=== PATIENT | female | born 1990 | race Caucasian/White ===

== ENCOUNTER 2019-01-11 15:18 | Inpatient (IN) | payer MEDICAID ==
--- NOTE | 2019-01-11 20:28 | PCM.LDHP ---
<Marcelo Luna - Last Filed: 01/11/19 21:32> L&D History of Present Illness - General Date of Service: 01/11/19 Admit Problem/Dx: Patient Status Order with Admit Dx/Problem 01/11/19 15:57 Patient Status [ADT] Routine Admission Diagnosis/Problem Admission Diagnosis/Problem Hypertension affecting Source of Information: Patient History Limitations: Reports: No Limitations - History of Present Illness Introduction:: Patient is a 28yo female at 37-4/7 weeks here for induction of labor. Pt was at work today when she experienced an episode of blurry vision lasting approximately 30 minutes. She also reported a headache at this time. Headache and vision have since returned to normal. Pt denies any vaginal discharge. Pt reports some painful cramping that comes and goes. Pt reports no abdominal pain at this time. Blood pressure was 150s/90s. This was monitored for an additional 4 hours, with the lowest pressure reading in the 130s/80s. An NST was performed which was reactive. Pt reports good movement. A CBC, CMP, and UA were obtained. The UA showed a urine creatinine/protein ratio of 8549.9 mg/g. It was decided to proceed with induction of labor. Pt understands and is in agreement. Present Illness Comments:: Pt is a 28yo female at 37 - 4/7 weeks gestation dated by 7 week ultrasound ([facility] 01/28/19). Dania Gaytan is a 28-year-old at 37 weeks 4 days by 7 week ultrasound ( [facility]HEL[facility] 01/28/2019) who presents for induction of labor 2/2 preeclampsia. She has had an overall uncomplicated and has had routine care with myself starting at 7 weeks gestational age. She had the TDaP vaccine on 2018. She did no receive the influenza vaccine. Her is complicated by: * IUGR; seen by Dr. Castrejon whose note showed EFW at 28th percentile and recommended for delivery at 39-40 WGA * GBS+ * Preeclampsia * Obesity labs Blood type: O+ Antibody screen: Negative First trimester hematocrit/hemoglobin: 38.3%/13.0 on 06/01/2018 Platelets: 290 on 06/01/2018 Urine culture: Mixed roma suggestive of contamination Rubella status: Immune Hepatitis B surface antigen: Negative RPR: Negative HIV: Negative Gonorrhea: Negative Chlamydia: Negative Anatomy ultrasound: 10/14/2018 at 24-0/7 showed normal growth, mobile baby. Anatomy normal except extremities not well visualized. Repeat US done on to recheck anatomy not seen. Lower legs, ankles and feet not seen but "felt to be present". One hour glucose tolerance test: 105 Second trimester hematocrit/hemoglobin: 32.2%/10.6 on 11/15/2018 Platelets: 289 on 11/15/2018 GBS status: Positive Genetic testing: Declined - Related Data Allergies/Adverse Reactions: Allergies Allergy/AdvReac Type Severity Reaction Status Date / Time seasonal Allergy Sneezing Uncoded 11/21/18 03:17 Home Medications: Home Meds PNV95/Ferrous Fumarate/FA [ Tablet] 1 each PO DAILY 11/21/18 [History] Past Medical History HEENT History: Reports: Allergic Rhinitis Social & Family History - Family History Respiratory: Reports: COPD (Paternal grandmother) GI: Reports: Hepatitis (Mother - Hep C) Endocrine/Metabolic: Reports: Diabetes, Type I (Brother), Hypothyroidism (Mother ) Dermatologic: Reports: Other (See Below) (skin cancer- maternal grandmother) - Tobacco Use Smoking Status *Q: Never Smoker - Alcohol Use Alcohol Use History: No - Recreational Drug Use Recreational Drug Use: No - Sexual History Sexual History: Reports: Sexually Active - Living Situation & Occupation Living situation: Reports: with Significant Other Occupation: Employed H&P Review of Systems - Review of Systems: Review Of Systems: See Below General: Reports: No Symptoms HEENT: Reports: No Symptoms Pulmonary: Reports: No Symptoms Cardiovascular: Reports: No Symptoms Gastrointestinal: Reports: No Symptoms Genitourinary: Reports: No Symptoms Musculoskeletal: Reports: Back Pain Skin: Reports: No Symptoms Psychiatric: Reports: No Symptoms Neurological: Reports: No Symptoms Hematologic/Lymphatic: Reports: No Symptoms Immunologic: Reports: No Symptoms L&D Exam - Exam Exam: See Below - Vital Signs Weight: 102.512 kg - OB Specific Fundal Height In cm: 37 Movement: Active Heart Tones: Present Heart Tones per Min: 125 Heart Rate (FHR) Variability: Moderate (6-25 bmp) Presentation: Vertex - Exam General: Alert, Oriented, Cooperative HEENT: Conjunctiva Clear, EACs Clear, EOMI, Hearing Intact, Mucosa Moist & [place] , Nares Patent, Normal Nasal Septum, Pupils Equal, Pupils Reactive Neck: Supple, Trachea Midline. No: Lymphadenopathy Lungs: Clear to Auscultation, Normal Respiratory Effort. No: Crackles, Rales, Rhonchi, Rub, Stridor, Wheezing Cardiovascular: Regular Rate, Regular Rhythm, Normal S1, Normal S2. No: Systolic Murmur, Diastolic Murmur, Rubs, Gallop/S3, Gallop/S4 GI/Abdominal Exam: Normal Bowel Sounds, Soft, Non-Tender, Tender, Other (Gravid) Rectal Exam: Deferred Genitourinary: Normal external exam Back Exam: Normal Inspection, Full Range of Motion Extremities: Normal Inspection, Normal Range of Motion, Non-Tender, Pedal Edema Skin: Warm, Dry, Intact Neurological: Cranial Nerves Intact, Normal Gait, Normal Speech, Sensation Intact Psychiatric: Alert, Normal Affect, Normal Mood Problem List Initiated/Reviewed/Updated: Yes Orders Last 24hrs: Active Orders 24 hr Category Date Time Status Patient Status [ADT] Routine ADT 01/11/19 15:57 Active Monitoring [RC] CONTINUOUS Care 01/11/19 15:58 Active Non Stress Test [RC] PER UNIT ROUTINE Care 01/11/19 15:57 Active Up ad Jenniffer [RC] ASDIRECTED Care 01/11/19 15:58 Active Vital Signs [RC] PER UNIT ROUTINE Care 01/11/19 15:57 Active Regular Diet [DIET] Diet 01/11/19 Dinner Active Resuscitation Status Routine Resus Stat 01/11/19 15:57 Ordered Assessment/Plan Comment:: Refer to observation for elective induction of labor Place cytotec for cervical ripening Start Pitocin for induction of labor Continuous monitoring Place IV and have Lactated Ringer's at 125 ml/hr May have small amounts of regular diet Activity as tolerated May have epidural as desired Plans to breast-feed after delivery Anticipate vaginal delivery unless otherwise indicated <Fer Dey - Last Filed: 01/12/19 00:56> L&D History of Present Illness - General Admit Problem/Dx: Patient Status Order with Admit Dx/Problem 01/11/19 20:30 Patient Status [ADT] Routine Admission Diagnosis/Problem Admission Diagnosis/Problem Pre-eclampsia L&D Exam - Vital Signs Vital Signs: Last Vital Signs Temp 36.6 C 01/11/19 15:57 Pulse 66 01/11/19 15:57 Resp 16 01/11/19 15:57 BP 149/83 H 01/11/19 15:57 Pulse Ox - Patient Data Lab Results Last 24 hrs: Laboratory Results - last 24 hr 01/11/19 Range/Units 14:33 RPR Non-reactive (NONREACTIVE) Orders Last 24hrs: Active Orders 24 hr Category Date Time Status Patient Status [ADT] Routine ADT 01/11/19 20:30 Active Activity as Tolerated [RC] PFP Care 01/11/19 20:30 Active Communication Order [RC] ASDIRECTED Care 01/11/19 20:30 Active Communication Order [RC] ASDIRECTED Care 01/11/19 20:35 Active Communication Order [RC] ASDIRECTED Care 01/11/19 20:35 Active Communication Order [RC] ASDIRECTED Care 01/11/19 20:35 Active Heart Tones [RC] ASDIRECTED Care 01/11/19 20:31 Active Monitoring [RC] CONTINUOUS Care 01/11/19 15:58 Active Non Stress Test [RC] PER UNIT ROUTINE Care 01/11/19 15:57 Active Notify Provider Vital Signs [RC] PRN Care 01/11/19 20:32 Active Notify Provider [RC] ASDIRECTED Care 01/11/19 20:35 Active Notify Provider [RC] ASDIRECTED Care 01/11/19 20:36 Active Notify Provider [RC] PFP Care 01/11/19 20:30 Active Notify Provider [RC] PRN Care 01/11/19 20:30 Active Peripheral IV Care [RC] . DIRECTED Care 01/11/19 20:31 Active Pump Management, Intrathecal [RC] ASDIRECTED Care 01/11/19 20:31 Active Up ad Jenniffer [RC] ASDIRECTED Care 01/11/19 15:58 Active Vaginal Exam [RC] ASDIRECTED Care 01/11/19 20:35 Active Vital Signs [RC] PER UNIT ROUTINE Care 01/11/19 15:57 Active Vital Signs [RC] PER UNIT ROUTINE Care 01/11/19 20:30 Active Regular Diet [DIET] Diet 01/11/19 Dinner Active Acetaminophen [Tylenol] Med 01/11/19 20:30 Active 650 mg PO Q6H PRN Lactated Ringers [Ringers, Lactated] 1,000 ml Med 01/11/19 20:30 Active IV ASDIRECTED Nalbuphine [Nubain] Med 01/11/19 20:30 Active 10 mg IVPUSH Q2H PRN Oxytocin/Lactated Ringers [Pitocin in LR 10 Units/1,000 Med 01/11/19 20:30 Active ML] 10 unit in 1,000 ml IV .CONTINUOUS Sodium Chloride 0.9% [Saline Flush] Med 01/11/19 20:30 Active 10 ml FLUSH ASDIRECTED PRN Sodium Chloride 0.9% [Saline Flush] Med 01/11/19 20:35 Active 10 ml FLUSH ASDIRECTED PRN miSOPROStol [Cytotec] Med 01/11/19 20:35 Active 25 mcg PO Q4H PRN Electronic Heart Tones Ext w TOCO [WOMSER] Ot 01/11/19 20:30 Ordered Routine Electronic Heart Tones Internal [WOMSER] Per Unit Ot 01/11/19 20:30 Ordered Routine Medication Administration Instruction [OM.PC] Ot 01/11/19 20:45 Ordered ASDIRECTED Peripheral IV Insertion Adult [OM.PC] Routine Ot 01/11/19 20:30 Ordered Peripheral IV Insertion Adult [OM.PC] Routine Ot 01/11/19 20:35 Ordered Resuscitation Status Routine Resus Stat 01/11/19 15:57 Ordered Medication Orders Acetaminophen (Tylenol) 650 mg PO Q6H PRN PRN Reason: Pain (Mild 1-3) and fever Lactated Ringer's (Ringers, Lactated) 1,000 mls @ 100 mls/hr IV ASDIRECTED [facility] Oxytocin/Lactated Ringer's (Pitocin In Lr 10 Units/1,000 Ml) 10 unit in 1,000 mls @ 100 mls/hr IV .CONTINUOUS [facility] Misoprostol (Cytotec) 25 mcg PO Q4H PRN PRN Reason: cervical ripening Nalbuphine HCl (Nubain) 10 mg IVPUSH Q2H PRN PRN Reason: Pain Sodium Chloride (Saline Flush) 10 ml FLUSH ASDIRECTED PRN PRN Reason: Keep Vein Open Sodium Chloride (Saline Flush) 10 ml FLUSH ASDIRECTED PRN PRN Reason: Keep Vein Open Assessment/Plan Comment:: I have seen and evaluated the patient with the medical student and agree with the assessment and plan as above with the following changes: Plan is for patient to receive Cytotec for cervical ripening and initial induction of labor. We will plan to transition to Pitocin for induction of labor after Cytotec has been given for initial induction. Fer Dey M.D. 12:56 AM 01/12/2019
[2019-01-11] MEDS ORDERED: Oxytocin/Lactated Ringers 10 UNIT/1,000 ML BAG IV SCH (20:30)
[2019-01-11] MEDS ORDERED: Nalbuphine 10 MG/1 ML Vial IVPUSH PRN (20:30)
[2019-01-11] MEDS ORDERED: Acetaminophen 325 MG Tab PO PRN (20:30)
[2019-01-11] MEDS ORDERED: Lactated Ringers 1,000 ML IV SCH (20:30)
[2019-01-11] MEDS ORDERED: Sodium Chloride 0.9% 10 ML Syringe FLUSH PRN ×2 (20:30→20:35)
[2019-01-11] MEDS ORDERED: Misoprostol 100 MCG Tab PO PRN (20:35)
--- NOTE | 2019-01-11 22:10 | PCM.SN ---
- Free Text/Narrative Note: 01-11-19 [id number] IV started tiimes 1 attempt left hand 20 guage. Flushed and secured. Norman
[2019-01-11] MEDS: Misoprostol 25 MCG (1/4 of 100 MCG) Tab ONE (22:45)
[2019-01-12] MEDS ORDERED: Bupivacaine 0.25% 10 ML SDV ONE
--- NOTE | 2019-01-12 01:13 | PCM.PNLD ---
Labor Progress Note - VS & Meds Vital Signs: Last Vital Signs Temp 36.6 C 01/11/19 15:57 Pulse 66 01/11/19 15:57 Resp 16 01/11/19 15:57 BP 149/83 H 01/11/19 15:57 Pulse Ox Active Medications: Current Medications Acetaminophen (Tylenol) 650 mg PO Q6H PRN PRN Reason: Pain (Mild 1-3) and fever Lactated Ringer's (Ringers, Lactated) 1,000 mls @ 100 mls/hr IV ASDIRECTED [facility] Oxytocin/Lactated Ringer's (Pitocin In Lr 10 Units/1,000 Ml) 10 unit in 1,000 mls @ 100 mls/hr IV .CONTINUOUS [facility] Misoprostol (Cytotec) 25 mcg PO Q4H PRN PRN Reason: cervical ripening Nalbuphine HCl (Nubain) 10 mg IVPUSH Q2H PRN PRN Reason: Pain Sodium Chloride (Saline Flush) 10 ml FLUSH ASDIRECTED PRN PRN Reason: Keep Vein Open Sodium Chloride (Saline Flush) 10 ml FLUSH ASDIRECTED PRN PRN Reason: Keep Vein Open Discontinued Medications Misoprostol (Cytotec) Confirm Administered Dose 25 mcg .ROUTE .STK-MED ONE Stop: 01/11/19 20:42 - Uterine Contractions Uterine Monitoring Mode: External [place] Contraction Frequency (min): 2-3 Contraction Duration (sec): 30-60 Contraction Intensity: Moderate Uterine Resting Tone: Soft - Monitoring Monitor Mode: Doppler/Auscultation Heart Rate (FHR) Baseline: 130 Heart Rate (FHR) Per Doppler: 130 Heart Rate (FHR) Variability: Moderate (6-25 bmp) Accelerations: Present, 15x15 Decelerations: None Strip Review: Category I - Vaginal Exam Dilation (cm): 2 Effacement (Percent): 80 Station: -3 Cervical Position: Midposition Sterile Vaginal Exam Performed By: Fer Dey Vaginal Exam Comment: Sterile exam performed and a transcervical 16 [place] Espinoza bulb was placed without difficulty. The catheter balloon was filled with 50 mL of sterile saline. Mother and tolerated procedure without difficulty. - Labor Progress (Free Text) Labor Progress: Patient with good progression with first dose of Cytotec Continue with induction with next dose of Cytotec as indicated 16 [place] transcervical Espinoza bulb was placed without difficulty and the balloon was filled with 50 mL of sterile saline. Espinoza catheter should be placed on stretch once patient is more comfortable to allow for better mechanical dilation of the cervix Continue to monitor blood pressures and vital signs closely for signs of preeclampsia with severe features. Patient with mild range blood pressures throughout the induction up to this point. Continue to monitor further signs of severe features of preeclampsia Continuous monitoring We will plan to transition to Pitocin for continued induction of labor once the cervix is favorable for Pitocin Anticipate vaginal delivery unless otherwise indicated Fer Dey M.D. 1:14 AM 01/12/2019
[2019-01-12] MEDS ORDERED: Misoprostol 25 MCG (1/4 of 100 MCG) Tab ONE (03:10)
[2019-01-12] MEDS: Misoprostol 25 MCG (1/4 of 100 MCG) Tab ONE (03:14)
[2019-01-12] MEDS ORDERED: Misoprostol 25 MCG (1/4 of 100 MCG) Tab PO PRN ×2 (03:57→04:01)
[2019-01-12] MEDS ORDERED: Ampicillin 2 GM in Sodium Chloride 0.9% 100 ML IV ONE (04:00)
--- NOTE | 2019-01-12 08:28 | PCM.PNLD ---
<Marcelo Luna - Last Filed: 01/12/19 08:22> Labor Progress Note - VS & Meds Vital Signs: Last Vital Signs Temp 97.9 F 01/11/19 15:57 Pulse 66 01/11/19 15:57 Resp 16 01/11/19 15:57 BP 149/83 H 01/11/19 15:57 Pulse Ox Active Medications: Current Medications Acetaminophen (Tylenol) 650 mg PO Q6H PRN PRN Reason: Pain (Mild 1-3) and fever Lactated Ringer's (Ringers, Lactated) 1,000 mls @ 100 mls/hr IV ASDIRECTED [facility] Last Admin: 01/12/19 04:16 Dose: 100 mls/hr Oxytocin/Lactated Ringer's (Pitocin In Lr 10 Units/1,000 Ml) 10 unit in 1,000 mls @ 100 mls/hr IV .CONTINUOUS [facility] Ampicillin Sodium 1 gm/ Sodium (Chloride) 100 mls @ 200 mls/hr IV Q4H [facility] Misoprostol (Cytotec) 25 mcg PO Q4H PRN PRN Reason: cervical ripening Nalbuphine HCl (Nubain) 10 mg IVPUSH Q2H PRN PRN Reason: Pain Sodium Chloride (Saline Flush) 10 ml FLUSH ASDIRECTED PRN PRN Reason: Keep Vein Open Sodium Chloride (Saline Flush) 10 ml FLUSH ASDIRECTED PRN PRN Reason: Keep Vein Open Discontinued Medications Ampicillin Sodium 2 gm/ Sodium (Chloride) 100 mls @ 200 mls/hr IV ONETIME ONE Stop: 01/12/19 04:29 Last Admin: 01/12/19 04:16 Dose: 200 mls/hr Misoprostol (Cytotec) 25 mcg PO Q4H PRN PRN Reason: cervical ripening Misoprostol (Cytotec) Confirm Administered Dose 25 mcg .ROUTE .STK-MED ONE Stop: 01/11/19 20:42 Last Admin: 01/12/19 03:14 Dose: 25 mcg Misoprostol (Cytotec) Confirm Administered Dose 25 mcg .ROUTE .STK-MED ONE Stop: 01/12/19 03:11 Misoprostol (Cytotec) 25 mcg PO Q4H PRN PRN Reason: cervical ripening - Uterine Contractions Uterine Monitoring Mode: External [place] Contraction Frequency (min): 2-4 Contraction Duration (sec): 30-60 Contraction Intensity: Moderate Uterine Resting Tone: Soft - Monitoring Monitor Mode: Doppler/Auscultation Heart Rate (FHR) Baseline: 130 Heart Rate (FHR) Per Doppler: 130 Heart Rate (FHR) Variability: Moderate (6-25 bmp) Accelerations: Present, 15x15 Decelerations: None Strip Review: Category I - Vaginal Exam Dilation (cm): 5 Effacement (Percent): 80 Station: -2 Cervical Position: Anterior Sterile Vaginal Exam Performed By: Fer Dey - Labor Progress (Free Text) Labor Progress: Patient with good progression with first 2 doses of Cytotec 16 [place]h transcervical Espinoza bulb was removed without difficulty Continue to monitor blood pressures and vital signs closely for signs of preeclampsia with severe features. Patient did have a few blood pressures approaching the severe features threshold Continue to monitor further signs of severe features of preeclampsia Continuous monitoring Ampicillin q4h until delivery Transition to Pitocin for continued induction of labor Anticipate vaginal delivery unless otherwise indicated <Fer Dey - Last Filed: 01/12/19 09:32> Labor Progress Note - VS & Meds Vital Signs: Last Vital Signs Temp 36.6 C 01/11/19 15:57 Pulse 66 01/11/19 15:57 Resp 16 01/11/19 15:57 BP 149/83 H 01/11/19 15:57 Pulse Ox Active Medications: Current Medications Acetaminophen (Tylenol) 650 mg PO Q6H PRN PRN Reason: Pain (Mild 1-3) and fever Ephedrine Sulfate (Ephedrine Sulfate) 5 mg IVPUSH ASDIRECTED PRN PRN Reason: Hypotension Fentanyl (Sublimaze) 100 mcg EPIDUR Q3H PRN PRN Reason: Pain Fentanyl/Bupivacaine HCl (Fentanyl/Bupivacaine/Ns 2 Mcg-0.125% 250 Ml) 2 mcg EPIDUR CONTINUOUS PRN PRN Reason: Pain Lactated Ringer's (Ringers, Lactated) 1,000 mls @ 100 mls/hr IV ASDIRECTED [facility] Last Admin: 01/12/19 04:16 Dose: 100 mls/hr Oxytocin/Lactated Ringer's (Pitocin In Lr 10 Units/1,000 Ml) 10 unit in 1,000 mls @ 100 mls/hr IV .CONTINUOUS [facility] Last Admin: 01/12/19 08:30 Dose: 100 mls/hr Ampicillin Sodium 1 gm/ Sodium (Chloride) 100 mls @ 200 mls/hr IV Q4H [facility] Last Admin: 01/12/19 08:29 Dose: 200 mls/hr Misoprostol (Cytotec) 25 mcg PO Q4H PRN PRN Reason: cervical ripening Nalbuphine HCl (Nubain) 10 mg IVPUSH Q2H PRN PRN Reason: Pain Ondansetron HCl (Zofran) 4 mg IVPUSH ONETIME PRN PRN Reason: Nausea/Vomiting Sodium Chloride (Saline Flush) 10 ml FLUSH ASDIRECTED PRN PRN Reason: Keep Vein Open Sodium Chloride (Saline Flush) 10 ml FLUSH ASDIRECTED PRN PRN Reason: Keep Vein Open Discontinued Medications Ampicillin Sodium 2 gm/ Sodium (Chloride) 100 mls @ 200 mls/hr IV ONETIME ONE Stop: 01/12/19 04:29 Last Admin: 01/12/19 04:16 Dose: 200 mls/hr Misoprostol (Cytotec) 25 mcg PO Q4H PRN PRN Reason: cervical ripening Misoprostol (Cytotec) Confirm Administered Dose 25 mcg .ROUTE .STK-MED ONE Stop: 01/11/19 20:42 Last Admin: 01/12/19 03:14 Dose: 25 mcg Misoprostol (Cytotec) Confirm Administered Dose 25 mcg .ROUTE .STK-MED ONE Stop: 01/12/19 03:11 Misoprostol (Cytotec) 25 mcg PO Q4H PRN PRN Reason: cervical ripening - Labor Progress (Free Text) Labor Progress: I have seen and evaluated the patient with the medical student and agree with the assessment and plan as per the note above. Fer Dey M.D. 9:32 AM 01/12/2019
[2019-01-12] MEDS: Ampicillin 1 GM in Sodium Chloride 0.9% 100 ML IV SCH ×2 (08:29→12:10)
[2019-01-12] MEDS ORDERED: fentaNYL 100 MCG/2 ML SDV EPIDUR PRN (09:21)
[2019-01-12] MEDS ORDERED: Ondansetron 4 MG/2 ML SDV IVPUSH PRN (09:21)
[2019-01-12] MEDS ORDERED: ePHEDrine 50 MG/ML SDV IVPUSH PRN (09:21)
[2019-01-12] MEDS ORDERED: fentaNYL/Bupivacaine in NS PF 2 MCG-0.125% 250 ML Premix EPIDUR PRN (09:21)
--- NOTE | 2019-01-12 09:27 | PCM.PREANE ---
Preanesthetic Assessment - Anesthesia/Transfusion/Family Hx Anesthesia History: No Prior Anesthesia Family History of Anesthesia Reaction: No Transfusion History: No Prior Transfusion(s) Intubation History: Unknown - Review of Systems General: No Symptoms Pulmonary: No Symptoms Cardiovascular: No Symptoms Gastrointestinal: No Symptoms (GERD) Neurological: No Symptoms, Numbness (Bilateral CTS with ) Other: Reports: None - Physical Assessment NPO Status Date: 01/12/19 NPO Status Time: 10:00 Vital Signs: Last Vital Signs Temp 36.6 C 01/11/19 15:57 Pulse 66 01/11/19 15:57 Resp 16 01/11/19 15:57 BP 149/83 H 01/11/19 15:57 Pulse Ox Height: 1.68 m Weight: 102.512 kg ASA Class: 2 Mental Status: Alert & Oriented x3 Airway Class: Mallampati = 2 Dentition: Reports: Normal Dentition, Caries Thyro-Mental Finger Breadths: 3 Mouth Opening Finger Breadths: 3 ROM/Head Extension: Full Lungs: Clear to Auscultation, Normal Respiratory Effort Cardiovascular: Regular Rate, Regular Rhythm, No Murmurs - Lab Values: Laboratory Last Values WBC 14.20 K/mm3 (3.98-10.04) H 01/12/19 09:00 RBC 3.80 M/mm3 (3.98-5.22) L 01/12/19 09:00 Hgb 10.9 gm/dl (11.2-15.7) L 01/12/19 09:00 Hct 33.5 % (34.1-44.9) L 01/12/19 09:00 MCV 88.2 fl (79.4-94.8) 01/12/19 09:00 MCH 28.7 pg (25.6-32.2) 01/12/19 09:00 MCHC 32.5 g/dl (32.2-35.5) 01/12/19 09:00 RDW Std Deviation 45.5 fL (36.4-46.3) 01/12/19 09:00 Plt Count 236 K/mm3 (182-369) 01/12/19 09:00 MPV 11.1 fl (9.4-12.3) 01/12/19 09:00 Neut % (Auto) 81.9 % (34.0-71.1) H 01/12/19 09:00 Lymph % (Auto) 12.3 % (19.3-51.7) L 01/12/19 09:00 Rock % (Auto) 5.0 % (4.7-12.5) 01/12/19 09:00 Eos % (Auto) 0.4 (0.7-5.8) L 01/12/19 09:00 Baso % (Auto) 0.2 % (0.1-1.2) 01/12/19 09:00 Neut # (Auto) 11.63 K/mm3 (1.56-6.13) H 01/12/19 09:00 Lymph # (Auto) 1.75 K/mm3 (1.18-3.74) 01/12/19 09:00 Rock # (Auto) 0.71 K/mm3 (0.24-0.36) H 01/12/19 09:00 Eos # (Auto) 0.05 K/mm3 (0.04-0.36) 01/12/19 09:00 Baso # (Auto) 0.03 K/mm3 (0.01-0.08) 01/12/19 09:00 RPR Non-reactive (NONREACTIVE) 01/11/19 14:33 Above labs reviewed and noted and within acceptable ranges to proceed with epidural if desired. - Allergies Allergies/Adverse Reactions: Allergies Allergy/AdvReac Type Severity Reaction Status Date / Time seasonal Allergy Sneezing Uncoded 11/21/18 03:17 - Anesthesia Plan Pre-Op Medication Ordered: None - Acknowledgements Anesthesia Type Planned: Epidural Pt an Appropriate Candidate for the Planned Anesthesia: Yes Alternatives and Risks of Anesthesia Discussed w Pt/Guardian: Yes Pt/Guardian Understands and Agrees with Anesthesia Plan: Yes PreAnesthesia Questionnaire HEENT History: Reports: Allergic Rhinitis - SUBSTANCE USE Smoking Status *Q: Never Smoker Second Hand Smoke Exposure: No Recreational Drug Use History: No - HOME MEDS Home Medications: Home Meds PNV95/Ferrous Fumarate/FA [ Tablet] 1 each PO DAILY 11/21/18 [History] - CURRENT (IN HOUSE) MEDS Current Meds: Current Medications Acetaminophen (Tylenol) 650 mg PO Q6H PRN PRN Reason: Pain (Mild 1-3) and fever Ephedrine Sulfate (Ephedrine Sulfate) 5 mg IVPUSH ASDIRECTED PRN PRN Reason: Hypotension Fentanyl (Sublimaze) 100 mcg EPIDUR Q3H PRN PRN Reason: Pain Fentanyl/Bupivacaine HCl (Fentanyl/Bupivacaine/Ns 2 Mcg-0.125% 250 Ml) 2 mcg EPIDUR CONTINUOUS PRN PRN Reason: Pain Lactated Ringer's (Ringers, Lactated) 1,000 mls @ 100 mls/hr IV ASDIRECTED [facility] Last Admin: 01/12/19 04:16 Dose: 100 mls/hr Oxytocin/Lactated Ringer's (Pitocin In Lr 10 Units/1,000 Ml) 10 unit in 1,000 mls @ 100 mls/hr IV .CONTINUOUS [facility] Last Admin: 01/12/19 08:30 Dose: 100 mls/hr Ampicillin Sodium 1 gm/ Sodium (Chloride) 100 mls @ 200 mls/hr IV Q4H [facility] Last Admin: 01/12/19 08:29 Dose: 200 mls/hr Misoprostol (Cytotec) 25 mcg PO Q4H PRN PRN Reason: cervical ripening Nalbuphine HCl (Nubain) 10 mg IVPUSH Q2H PRN PRN Reason: Pain Ondansetron HCl (Zofran) 4 mg IVPUSH ONETIME PRN PRN Reason: Nausea/Vomiting Sodium Chloride (Saline Flush) 10 ml FLUSH ASDIRECTED PRN PRN Reason: Keep Vein Open Sodium Chloride (Saline Flush) 10 ml FLUSH ASDIRECTED PRN PRN Reason: Keep Vein Open Discontinued Medications Ampicillin Sodium 2 gm/ Sodium (Chloride) 100 mls @ 200 mls/hr IV ONETIME ONE Stop: 01/12/19 04:29 Last Admin: 01/12/19 04:16 Dose: 200 mls/hr Misoprostol (Cytotec) 25 mcg PO Q4H PRN PRN Reason: cervical ripening Misoprostol (Cytotec) Confirm Administered Dose 25 mcg .ROUTE .STK-MED ONE Stop: 01/11/19 20:42 Last Admin: 01/12/19 03:14 Dose: 25 mcg Misoprostol (Cytotec) Confirm Administered Dose 25 mcg .ROUTE .STK-MED ONE Stop: 01/12/19 03:11 Misoprostol (Cytotec) 25 mcg PO Q4H PRN PRN Reason: cervical ripening
[2019-01-12] MEDS ORDERED: Oxytocin/Lactated Ringers 10 UNIT/1,000 ML BAG IV SCH ×2 (09:45→20:22)
--- NOTE | 2019-01-12 12:02 | PCM.PNLD ---
<Marcelo Luna - Last Filed: 01/12/19 12:04> Labor Progress Note - VS & Meds Vital Signs: Last Vital Signs Temp 97.9 F 01/11/19 15:57 Pulse 66 01/11/19 15:57 Resp 16 01/11/19 15:57 BP 149/83 H 01/11/19 15:57 Pulse Ox Active Medications: Current Medications Acetaminophen (Tylenol) 650 mg PO Q6H PRN PRN Reason: Pain (Mild 1-3) and fever Ephedrine Sulfate (Ephedrine Sulfate) 5 mg IVPUSH ASDIRECTED PRN PRN Reason: Hypotension Fentanyl (Sublimaze) 100 mcg EPIDUR Q3H PRN PRN Reason: Pain Fentanyl/Bupivacaine HCl (Fentanyl/Bupivacaine/Ns 2 Mcg-0.125% 250 Ml) 2 mcg EPIDUR CONTINUOUS PRN PRN Reason: Pain Lactated Ringer's (Ringers, Lactated) 1,000 mls @ 100 mls/hr IV ASDIRECTED ALFREDITO Last Admin: 01/12/19 04:16 Dose: 100 mls/hr Oxytocin/Lactated Ringer's (Pitocin In Lr 10 Units/1,000 Ml) 10 unit in 1,000 mls @ 100 mls/hr IV .CONTINUOUS ALFREDITO Ampicillin Sodium 1 gm/ Sodium (Chloride) 100 mls @ 200 mls/hr IV Q4H ALFREDITO Last Admin: 01/12/19 08:29 Dose: 200 mls/hr Oxytocin/Lactated Ringer's (Pitocin In Lr 10 Units/1,000 Ml) 10 unit in 1,000 mls @ 12 mls/hr IV TITRATE ALFREDITO; Protocol Misoprostol (Cytotec) 25 mcg PO Q4H PRN PRN Reason: cervical ripening Nalbuphine HCl (Nubain) 10 mg IVPUSH Q2H PRN PRN Reason: Pain Ondansetron HCl (Zofran) 4 mg IVPUSH ONETIME PRN PRN Reason: Nausea/Vomiting Sodium Chloride (Saline Flush) 10 ml FLUSH ASDIRECTED PRN PRN Reason: Keep Vein Open Sodium Chloride (Saline Flush) 10 ml FLUSH ASDIRECTED PRN PRN Reason: Keep Vein Open Discontinued Medications Ampicillin Sodium 2 gm/ Sodium (Chloride) 100 mls @ 200 mls/hr IV ONETIME ONE Stop: 01/12/19 04:29 Last Admin: 01/12/19 04:16 Dose: 200 mls/hr Misoprostol (Cytotec) 25 mcg PO Q4H PRN PRN Reason: cervical ripening Misoprostol (Cytotec) Confirm Administered Dose 25 mcg .ROUTE .STK-MED ONE Stop: 01/11/19 20:42 Last Admin: 01/12/19 03:14 Dose: 25 mcg Misoprostol (Cytotec) Confirm Administered Dose 25 mcg .ROUTE .STK-MED ONE Stop: 01/12/19 03:11 Misoprostol (Cytotec) 25 mcg PO Q4H PRN PRN Reason: cervical ripening - Uterine Contractions Uterine Monitoring Mode: External [place] Contraction Frequency (min): 2-4 Contraction Duration (sec): 30-60 Contraction Intensity: Moderate Uterine Resting Tone: Soft - Monitoring Monitor Mode: Doppler/Auscultation Heart Rate (FHR) Baseline: 130 Heart Rate (FHR) Per Doppler: 140 Heart Rate (FHR) Variability: Moderate (6-25 bmp) Accelerations: Present, 15x15 Decelerations: Early, Late (intermittent) Strip Review: Category II - Vaginal Exam Dilation (cm): 6 Effacement (Percent): 80 Station: -2 Cervical Position: Anterior Sterile Vaginal Exam Performed By: Fer Dey Vaginal Exam Comment: AROM performed with amnihook without difficulty. IUPC inserted for monitoring of contraction pattern with decelerations without difficulty. Mother and tolerated procedure without issue. - Labor Progress (Free Text) Labor Progress: Patient with minimal progression, and intermittent late decelerations Continue to monitor blood pressures and vital signs closely for signs of preeclampsia with severe features. Patient did have a few blood pressures approaching the severe features threshold AROM and insertion of IUPC performed Continue to monitor further signs of severe features of preeclampsia Continuous monitoring Ampicillin q4h until delivery Pitocin for continued induction of labor Anticipate vaginal delivery unless otherwise indicated <Fer Dey - Last Filed: 01/12/19 12:12> Labor Progress Note - VS & Meds Vital Signs: Last Vital Signs Temp 36.6 C 01/11/19 15:57 Pulse 66 01/11/19 15:57 Resp 16 01/11/19 15:57 BP 149/83 H 01/11/19 15:57 Pulse Ox Active Medications: Current Medications Acetaminophen (Tylenol) 650 mg PO Q6H PRN PRN Reason: Pain (Mild 1-3) and fever Ephedrine Sulfate (Ephedrine Sulfate) 5 mg IVPUSH ASDIRECTED PRN PRN Reason: Hypotension Fentanyl (Sublimaze) 100 mcg EPIDUR Q3H PRN PRN Reason: Pain Fentanyl/Bupivacaine HCl (Fentanyl/Bupivacaine/Ns 2 Mcg-0.125% 250 Ml) 2 mcg EPIDUR CONTINUOUS PRN PRN Reason: Pain Lactated Ringer's (Ringers, Lactated) 1,000 mls @ 100 mls/hr IV ASDIRECTED ALFREDITO Last Admin: 01/12/19 04:16 Dose: 100 mls/hr Oxytocin/Lactated Ringer's (Pitocin In Lr 10 Units/1,000 Ml) 10 unit in 1,000 mls @ 100 mls/hr IV .CONTINUOUS ALFREDITO Ampicillin Sodium 1 gm/ Sodium (Chloride) 100 mls @ 200 mls/hr IV Q4H ON LICENSE OF [facility] Last Admin: 01/12/19 12:10 Dose: 200 mls/hr Oxytocin/Lactated Ringer's (Pitocin In Lr 10 Units/1,000 Ml) 10 unit in 1,000 mls @ 12 mls/hr IV TITRATE ALFREDITO; Protocol Misoprostol (Cytotec) 25 mcg PO Q4H PRN PRN Reason: cervical ripening Nalbuphine HCl (Nubain) 10 mg IVPUSH Q2H PRN PRN Reason: Pain Ondansetron HCl (Zofran) 4 mg IVPUSH ONETIME PRN PRN Reason: Nausea/Vomiting Sodium Chloride (Saline Flush) 10 ml FLUSH ASDIRECTED PRN PRN Reason: Keep Vein Open Sodium Chloride (Saline Flush) 10 ml FLUSH ASDIRECTED PRN PRN Reason: Keep Vein Open Discontinued Medications Ampicillin Sodium 2 gm/ Sodium (Chloride) 100 mls @ 200 mls/hr IV ONETIME ONE Stop: 01/12/19 04:29 Last Admin: 01/12/19 04:16 Dose: 200 mls/hr Misoprostol (Cytotec) 25 mcg PO Q4H PRN PRN Reason: cervical ripening Misoprostol (Cytotec) Confirm Administered Dose 25 mcg .ROUTE .STK-MED ONE Stop: 01/11/19 20:42 Last Admin: 01/12/19 03:14 Dose: 25 mcg Misoprostol (Cytotec) Confirm Administered Dose 25 mcg .ROUTE .STK-MED ONE Stop: 01/12/19 03:11 Misoprostol (Cytotec) 25 mcg PO Q4H PRN PRN Reason: cervical ripening - Labor Progress (Free Text) Labor Progress: I have seen and evaluated the patient with the medical student and agree with the assessment and plan as per the note above. Fer Dey M.D. 12:11 PM 01/12/2019
--- NOTE | 2019-01-12 12:43 | PCM.PREANE ---
Preanesthetic Assessment - Anesthesia/Transfusion/Family Hx Anesthesia History: No Prior Anesthesia Family History of Anesthesia Reaction: No Transfusion History: No Prior Transfusion(s) Intubation History: Unknown - Physical Assessment NPO Status Date: 01/12/19 Vital Signs: Last Vital Signs Temp 36.6 C 01/11/19 15:57 Pulse 66 01/11/19 15:57 Resp 16 01/11/19 15:57 BP 149/83 H 01/11/19 15:57 Pulse Ox Height: 1.68 m Weight: 102.512 kg - Lab Values: Laboratory Last Values WBC 14.20 K/mm3 (3.98-10.04) H 01/12/19 09:00 RBC 3.80 M/mm3 (3.98-5.22) L 01/12/19 09:00 Hgb 10.9 gm/dl (11.2-15.7) L 01/12/19 09:00 Hct 33.5 % (34.1-44.9) L 01/12/19 09:00 MCV 88.2 fl (79.4-94.8) 01/12/19 09:00 MCH 28.7 pg (25.6-32.2) 01/12/19 09:00 MCHC 32.5 g/dl (32.2-35.5) 01/12/19 09:00 RDW Std Deviation 45.5 fL (36.4-46.3) 01/12/19 09:00 Plt Count 236 K/mm3 (182-369) 01/12/19 09:00 MPV 11.1 fl (9.4-12.3) 01/12/19 09:00 Neut % (Auto) 81.9 % (34.0-71.1) H 01/12/19 09:00 Lymph % (Auto) 12.3 % (19.3-51.7) L 01/12/19 09:00 [place] % (Auto) 5.0 % (4.7-12.5) 01/12/19 09:00 Eos % (Auto) 0.4 (0.7-5.8) L 01/12/19 09:00 Baso % (Auto) 0.2 % (0.1-1.2) 01/12/19 09:00 Neut # (Auto) 11.63 K/mm3 (1.56-6.13) H 01/12/19 09:00 Lymph # (Auto) 1.75 K/mm3 (1.18-3.74) 01/12/19 09:00 [place] # (Auto) 0.71 K/mm3 (0.24-0.36) H 01/12/19 09:00 Eos # (Auto) 0.05 K/mm3 (0.04-0.36) 01/12/19 09:00 Baso # (Auto) 0.03 K/mm3 (0.01-0.08) 01/12/19 09:00 RPR Non-reactive (NONREACTIVE) 01/11/19 14:33 - Allergies Allergies/Adverse Reactions: Allergies Allergy/AdvReac Type Severity Reaction Status Date / Time seasonal Allergy Sneezing Uncoded 11/21/18 03:17 PreAnesthesia Questionnaire HEENT History: Reports: Allergic Rhinitis - SUBSTANCE USE Smoking Status *Q: Never Smoker Second Hand Smoke Exposure: No Recreational Drug Use History: No - HOME MEDS Home Medications: Home Meds PNV95/Ferrous Fumarate/FA [ Tablet] 1 each PO DAILY 11/21/18 [History] - CURRENT (IN HOUSE) MEDS Current Meds: Current Medications Acetaminophen (Tylenol) 650 mg PO Q6H PRN PRN Reason: Pain (Mild 1-3) and fever Ephedrine Sulfate (Ephedrine Sulfate) 5 mg IVPUSH ASDIRECTED PRN PRN Reason: Hypotension Fentanyl (Sublimaze) 100 mcg EPIDUR Q3H PRN PRN Reason: Pain Fentanyl/Bupivacaine HCl (Fentanyl/Bupivacaine/Ns 2 Mcg-0.125% 250 Ml) 2 mcg EPIDUR CONTINUOUS PRN PRN Reason: Pain Lactated Ringer's (Ringers, Lactated) 1,000 mls @ 100 mls/hr IV ASDIRECTED ALFREDITO Last Admin: 01/12/19 04:16 Dose: 100 mls/hr Oxytocin/Lactated Ringer's (Pitocin In Lr 10 Units/1,000 Ml) 10 unit in 1,000 mls @ 100 mls/hr IV .CONTINUOUS ALFREDITO Ampicillin Sodium 1 gm/ Sodium (Chloride) 100 mls @ 200 mls/hr IV Q4H ALFREDITO Last Admin: 01/12/19 12:10 Dose: 200 mls/hr Oxytocin/Lactated Ringer's (Pitocin In Lr 10 Units/1,000 Ml) 10 unit in 1,000 mls @ 12 mls/hr IV TITRATE ALFREDITO; Protocol Misoprostol (Cytotec) 25 mcg PO Q4H PRN PRN Reason: cervical ripening Nalbuphine HCl (Nubain) 10 mg IVPUSH Q2H PRN PRN Reason: Pain Ondansetron HCl (Zofran) 4 mg IVPUSH ONETIME PRN PRN Reason: Nausea/Vomiting Sodium Chloride (Saline Flush) 10 ml FLUSH ASDIRECTED PRN PRN Reason: Keep Vein Open Sodium Chloride (Saline Flush) 10 ml FLUSH ASDIRECTED PRN PRN Reason: Keep Vein Open Discontinued Medications Ampicillin Sodium 2 gm/ Sodium (Chloride) 100 mls @ 200 mls/hr IV ONETIME ONE Stop: 01/12/19 04:29 Last Admin: 01/12/19 04:16 Dose: 200 mls/hr Misoprostol (Cytotec) 25 mcg PO Q4H PRN PRN Reason: cervical ripening Misoprostol (Cytotec) Confirm Administered Dose 25 mcg .ROUTE .STK-MED ONE Stop: 01/11/19 20:42 Last Admin: 01/12/19 03:14 Dose: 25 mcg Misoprostol (Cytotec) Confirm Administered Dose 25 mcg .ROUTE .STK-MED ONE Stop: 01/12/19 03:11 Misoprostol (Cytotec) 25 mcg PO Q4H PRN PRN Reason: cervical ripening
--- NOTE | 2019-01-12 16:52 | PCM.DEL ---
<Marcelo Luna - Last Filed: 01/12/19 16:56> L & D Note - General Info Date of Service: 01/12/19 - Delivery Note Labor: Augmented by ARM, Augmented by Oxytocin Cervical Ripening Method: Misoprostil Delivery Outcome: Livebirth Delivery Method: Spontaneous Vaginal Delivery-Single Delivery Mode: Spontaneous Presentation: Left Occiput Anterior (MAHESH) Nuchal Cord: Present, Reduced (after delivery) Anesthesia Type: Epidural Amniotic Fluid Description: Clear Episiotomy Type: None Laceration: 1st Degree, Perineal, Periurethral Suture type: Vicryl Suture size: 3-0 Placenta: Curettage, Manual Removal Cord: 3 Vessels Estimated Blood Loss: 500 Resuscitation Needed: No : Bulb Syringe, Stimulated, Warmed, [place] Used, Warmer Used Provider: Fer Dey Score 1 min: 8 Score 5 min: 9 Post Delivery Events: Retained Placenta Second Stage Interventions: Reports: Pushing Effectively, Pushing, Stirrups/Leg Supports Delivery Comments (Free Text/Narrative):: Stage I: Dania Gaytan was admitted for medical induction of labor. She was having blurry vision, persistent elevated blood pressures above 140/90, and proteinuria. On admission her cervix was dilated to 1 cm. She was GBS positive. Treated with ampicillin, and received a total of 3 doses. She was administered cytotec for cervical ripening. She was started on Pitocin for augmentation of labor. She had artificial rupture membranes with clear fluid. She was given an epidural for anesthesia. She progressed to complete and pushing. Stage II: On 01/12/2019 she had a normal vaginal delivery of a live female at . Apgars of 8 & 9. Weight of 2540 g (5 lbs 9.6 oz). Length of 19.5 inches. There was a nuchal cord, which was reduced after delivery of the infant. was delivered in MAHESH position. The cord was doubly clamped and cut by father of the . was placed on mother's abdomen. Stage III: Avulsion of the umbilical cord during delivery of the placenta. The placenta was then manually extracted in multiple pieces. The uterine cavity was then curettaged in all quadrants with good cri noted, and no additional tissue removed. The uterus had good tone after removal of all portions of the retained placenta. Three vessel cord. She was given pitocin and fundal massage. She had a first-degree left perineal laceration that was repaired with 3-0 Vicryl. She also had a small 1st-degree ila-urethral laceration that was not bleeding, and was not repaired. Mom and baby were stable to recovery. EBL of 500 mL. - General Info Date of Service: 01/12/19 - Patient Data Vitals - Most Recent: Last Vital Signs Temp 97.9 F 01/11/19 15:57 Pulse 66 01/11/19 15:57 Resp 16 01/11/19 15:57 BP 149/83 H 01/11/19 15:57 Pulse Ox Weight - Most Recent: 102.512 kg I&O - Last 24 Hours: Intake & Output 01/12/19 01/12/19 01/12/19 06:59 14:59 22:59 Intake Total 240 Balance 240 Lab Results Last 24 Hours: Laboratory Results - last 24 hr 01/11/19 01/12/19 Range/Units 14:33 09:00 WBC 14.20 H (3.98-10.04) K/mm3 RBC 3.80 L (3.98-5.22) M/mm3 Hgb 10.9 L (11.2-15.7) gm/dl Hct 33.5 L (34.1-44.9) % MCV 88.2 (79.4-94.8) fl MCH 28.7 (25.6-32.2) pg MCHC 32.5 (32.2-35.5) g/dl RDW Std Deviation 45.5 (36.4-46.3) fL Plt Count 236 (182-369) K/mm3 MPV 11.1 (9.4-12.3) fl Neut % (Auto) 81.9 H (34.0-71.1) % Lymph % (Auto) 12.3 L (19.3-51.7) % [place] % (Auto) 5.0 (4.7-12.5) % Eos % (Auto) 0.4 L (0.7-5.8) Baso % (Auto) 0.2 (0.1-1.2) % Neut # (Auto) 11.63 H (1.56-6.13) K/mm3 Lymph # (Auto) 1.75 (1.18-3.74) K/mm3 [place] # (Auto) 0.71 H (0.24-0.36) K/mm3 Eos # (Auto) 0.05 (0.04-0.36) K/mm3 Baso # (Auto) 0.03 (0.01-0.08) K/mm3 RPR Non-reactive (NONREACTIVE) Med Orders - Current: Current Medications Acetaminophen (Tylenol) 650 mg PO Q6H PRN PRN Reason: Pain (Mild 1-3) and fever Ephedrine Sulfate (Ephedrine Sulfate) 5 mg IVPUSH ASDIRECTED PRN PRN Reason: Hypotension Fentanyl (Sublimaze) 100 mcg EPIDUR Q3H PRN PRN Reason: Pain Last Admin: 01/12/19 12:43 Dose: 100 mcg Fentanyl/Bupivacaine HCl (Fentanyl/Bupivacaine/Ns 2 Mcg-0.125% 250 Ml) 2 mcg EPIDUR CONTINUOUS PRN PRN Reason: Pain Last Admin: 01/12/19 12:43 Dose: 2 mcg Lactated Ringer's (Ringers, Lactated) 1,000 mls @ 100 mls/hr IV ASDIRECTED ALFREDITO Last Admin: 01/12/19 04:16 Dose: 100 mls/hr Oxytocin/Lactated Ringer's (Pitocin In Lr 10 Units/1,000 Ml) 10 unit in 1,000 mls @ 100 mls/hr IV .CONTINUOUS ALFREDITO Ampicillin Sodium 1 gm/ Sodium (Chloride) 100 mls @ 200 mls/hr IV Q4H ALFREDITO Last Admin: 01/12/19 12:10 Dose: 200 mls/hr Oxytocin/Lactated Ringer's (Pitocin In Lr 10 Units/1,000 Ml) 10 unit in 1,000 mls @ 12 mls/hr IV TITRATE ALFREDITO; Protocol Last Titration: 01/12/19 09:15 Dose: 6 munits/min, 36 mls/hr Misoprostol (Cytotec) 25 mcg PO Q4H PRN PRN Reason: cervical ripening Nalbuphine HCl (Nubain) 10 mg IVPUSH Q2H PRN PRN Reason: Pain Ondansetron HCl (Zofran) 4 mg IVPUSH ONETIME PRN PRN Reason: Nausea/Vomiting Sodium Chloride (Saline Flush) 10 ml FLUSH ASDIRECTED PRN PRN Reason: Keep Vein Open Sodium Chloride (Saline Flush) 10 ml FLUSH ASDIRECTED PRN PRN Reason: Keep Vein Open Discontinued Medications Ampicillin Sodium 2 gm/ Sodium (Chloride) 100 mls @ 200 mls/hr IV ONETIME ONE Stop: 01/12/19 04:29 Last Admin: 01/12/19 04:16 Dose: 200 mls/hr Misoprostol (Cytotec) 25 mcg PO Q4H PRN PRN Reason: cervical ripening Misoprostol (Cytotec) Confirm Administered Dose 25 mcg .ROUTE .STK-MED ONE Stop: 01/11/19 20:42 Last Admin: 01/12/19 03:14 Dose: 25 mcg Misoprostol (Cytotec) Confirm Administered Dose 25 mcg .ROUTE .STK-MED ONE Stop: 01/12/19 03:11 Misoprostol (Cytotec) 25 mcg PO Q4H PRN PRN Reason: cervical ripening - Problem List & Annotations (1) 37 weeks gestation of SNOMED Code(s): 14033513 Code(s): Z3A.37 - 37 WEEKS GESTATION OF Status: Acute Current Visit: Yes (2) Preeclampsia SNOMED Code(s): 586341925 Code(s): O14.90 - UNSPECIFIED PRE-ECLAMPSIA, UNSPECIFIED TRIMESTER Status: Acute Current Visit: Yes (3) Gastroesophageal reflux in SNOMED Code(s): 13346142314078342 Code(s): O99.619 - DISEASES OF THE DGSTV SYS COMP , UNSP TRIMESTER; K21.9 - GASTRO-ESOPHAGEAL REFLUX DISEASE WITHOUT ESOPHAGITIS Status: Acute Current Visit: Yes (4) Obesity SNOMED Code(s): 663078357, 970826436 Code(s): E66.9 - OBESITY, UNSPECIFIED Status: Acute Current Visit: Yes (5) GBS (group B Streptococcus carrier), +RV culture, currently SNOMED Code(s): 4901005247383, 706574924, 9791434545122 Code(s): O99.820 - STREPTOCOCCUS B CARRIER STATE COMPLICATING Status: Acute Current Visit: Yes (6) Vaginal delivery SNOMED Code(s): 418291967 Code(s): O80 - ENCOUNTER FOR FULL-TERM UNCOMPLICATED DELIVERY Status: Acute Current Visit: Yes (7) Retained placenta SNOMED Code(s): 934988608 Code(s): O73.0 - RETAINED PLACENTA WITHOUT HEMORRHAGE Status: Acute Current Visit: Yes (8) First degree laceration of perineum during delivery, SNOMED Code(s): 058533137 Code(s): O70.0 - FIRST DEGREE PERINEAL LACERATION DURING DELIVERY Status: Acute Current Visit: Yes - Problem List Review Problem List Initiated/Reviewed/Updated: Yes - Plan Plan:: Admit to inpatient following normal spontaneous vaginal delivery Continue Pitocin per unit protocol following delivery of placenta and lactated Ringer's until tolerating regular diet Regular diet Vitals per unit routine Ibuprofen and Tylenol for pain control Assist with breast-feeding as needed Continue to monitor lochia Monitor temperature for signs of endometritis Anticipate discharge home on day #2 <Fer Dey - Last Filed: 01/12/19 17:30> - Patient Data Vitals - Most Recent: Last Vital Signs Temp 36.6 C 01/11/19 15:57 Pulse 66 01/11/19 15:57 Resp 16 01/11/19 15:57 BP 149/83 H 01/11/19 15:57 Pulse Ox I&O - Last 24 Hours: Intake & Output 01/12/19 01/12/19 01/12/19 06:59 14:59 22:59 Intake Total 240 Balance 240 Lab Results Last 24 Hours: Laboratory Results - last 24 hr 01/11/19 01/12/19 Range/Units 14:33 09:00 WBC 14.20 H (3.98-10.04) K/mm3 RBC 3.80 L (3.98-5.22) M/mm3 Hgb 10.9 L (11.2-15.7) gm/dl Hct 33.5 L (34.1-44.9) % MCV 88.2 (79.4-94.8) fl MCH 28.7 (25.6-32.2) pg MCHC 32.5 (32.2-35.5) g/dl RDW Std Deviation 45.5 (36.4-46.3) fL Plt Count 236 (182-369) K/mm3 MPV 11.1 (9.4-12.3) fl Neut % (Auto) 81.9 H (34.0-71.1) % Lymph % (Auto) 12.3 L (19.3-51.7) % [place] % (Auto) 5.0 (4.7-12.5) % Eos % (Auto) 0.4 L (0.7-5.8) Baso % (Auto) 0.2 (0.1-1.2) % Neut # (Auto) 11.63 H (1.56-6.13) K/mm3 Lymph # (Auto) 1.75 (1.18-3.74) K/mm3 [place] # (Auto) 0.71 H (0.24-0.36) K/mm3 Eos # (Auto) 0.05 (0.04-0.36) K/mm3 Baso # (Auto) 0.03 (0.01-0.08) K/mm3 RPR Non-reactive (NONREACTIVE) Med Orders - Current: Current Medications Acetaminophen (Tylenol) 650 mg PO Q6H PRN PRN Reason: Pain (Mild 1-3) and fever Ephedrine Sulfate (Ephedrine Sulfate) 5 mg IVPUSH ASDIRECTED PRN PRN Reason: Hypotension Fentanyl (Sublimaze) 100 mcg EPIDUR Q3H PRN PRN Reason: Pain Last Admin: 01/12/19 12:43 Dose: 100 mcg Fentanyl/Bupivacaine HCl (Fentanyl/Bupivacaine/Ns 2 Mcg-0.125% 250 Ml) 2 mcg EPIDUR CONTINUOUS PRN PRN Reason: Pain Last Admin: 01/12/19 12:43 Dose: 2 mcg Lactated Ringer's (Ringers, Lactated) 1,000 mls @ 100 mls/hr IV ASDIRECTED ALFREDITO Last Admin: 01/12/19 04:16 Dose: 100 mls/hr Oxytocin/Lactated Ringer's (Pitocin In Lr 10 Units/1,000 Ml) 10 unit in 1,000 mls @ 100 mls/hr IV .CONTINUOUS ALFREDITO Ampicillin Sodium 1 gm/ Sodium (Chloride) 100 mls @ 200 mls/hr IV Q4H ALFREDITO Last Admin: 01/12/19 12:10 Dose: 200 mls/hr Oxytocin/Lactated Ringer's (Pitocin In Lr 10 Units/1,000 Ml) 10 unit in 1,000 mls @ 12 mls/hr IV TITRATE ALFREDITO; Protocol Last Titration: 01/12/19 09:15 Dose: 6 munits/min, 36 mls/hr Misoprostol (Cytotec) 25 mcg PO Q4H PRN PRN Reason: cervical ripening Nalbuphine HCl (Nubain) 10 mg IVPUSH Q2H PRN PRN Reason: Pain Ondansetron HCl (Zofran) 4 mg IVPUSH ONETIME PRN PRN Reason: Nausea/Vomiting Sodium Chloride (Saline Flush) 10 ml FLUSH ASDIRECTED PRN PRN Reason: Keep Vein Open Sodium Chloride (Saline Flush) 10 ml FLUSH ASDIRECTED PRN PRN Reason: Keep Vein Open Discontinued Medications Ampicillin Sodium 2 gm/ Sodium (Chloride) 100 mls @ 200 mls/hr IV ONETIME ONE Stop: 01/12/19 04:29 Last Admin: 01/12/19 04:16 Dose: 200 mls/hr Misoprostol (Cytotec) 25 mcg PO Q4H PRN PRN Reason: cervical ripening Misoprostol (Cytotec) Confirm Administered Dose 25 mcg .ROUTE .STK-MED ONE Stop: 01/11/19 20:42 Last Admin: 01/12/19 03:14 Dose: 25 mcg Misoprostol (Cytotec) Confirm Administered Dose 25 mcg .ROUTE .STK-MED ONE Stop: 01/12/19 03:11 Misoprostol (Cytotec) 25 mcg PO Q4H PRN PRN Reason: cervical ripening - My Orders Last 24 Hours: My Active Orders 01/11/19 20:30 Patient Status [ADT] Routine Activity as Tolerated [RC] PFP Communication Order [RC] ASDIRECTED Notify Provider [RC] PFP Notify Provider [RC] PRN Vital Signs [RC] PER UNIT ROUTINE Acetaminophen [Tylenol] 650 mg PO Q6H PRN Lactated Ringers [Ringers, Lactated] 1,000 ml IV ASDIRECTED Nalbuphine [Nubain] 10 mg IVPUSH Q2H PRN Oxytocin/Lactated Ringers [Pitocin in LR 10 Units/1,000 ML] 10 unit in 1,000 ml IV .CONTINUOUS Sodium Chloride 0.9% [Saline Flush] 10 ml FLUSH ASDIRECTED PRN Electronic Heart Tones Ext w TOCO [WOMSER] Routine Electronic Heart Tones Internal [WOMSER] Per Unit Routine Peripheral IV Insertion Adult [OM.PC] Routine 01/11/19 20:31 Heart Tones [RC] ASDIRECTED Peripheral IV Care [RC] . DIRECTED Pump Management, Intrathecal [RC] ASDIRECTED 01/11/19 20:32 Notify Provider Vital Signs [RC] PRN 01/11/19 20:35 Communication Order [RC] ASDIRECTED Communication Order [RC] ASDIRECTED Communication Order [RC] ASDIRECTED Notify Provider [RC] ASDIRECTED Vaginal Exam [RC] ASDIRECTED Sodium Chloride 0.9% [Saline Flush] 10 ml FLUSH ASDIRECTED PRN Peripheral IV Insertion Adult [OM.PC] Routine 01/11/19 20:36 Notify Provider [RC] ASDIRECTED 01/11/19 20:45 Medication Administration Instruction [OM.PC] ASDIRECTED 01/11/19 Dinner Regular Diet [DIET] 01/12/19 04:01 miSOPROStol [Cytotec] 25 mcg PO Q4H PRN 01/12/19 08:15 Ampicillin 1 gm Sodium Chloride 0.9% [Normal Saline] 100 ml IV Q4H 01/12/19 09:45 Oxytocin/Lactated Ringers [Pitocin in LR 10 Units/1,000 ML] 10 unit in 1,000 ml IV TITRATE 01/12/19 17:24 Patient Status Manage Transfer [TRANSFER] Routine - Plan Plan:: I supervised the delivery of the infant patient with the medical student and performed the manual extraction of the placenta. I agree with the assessment and plan as per the note above. Fer Dey M.D. 5:30 PM 01/12/2019
[2019-01-12] MEDS ORDERED: Acetaminophen 325 MG Tab PO PRN (20:22)
[2019-01-12] MEDS ORDERED: Witch Hazel Medicated Pads 40/Jar TOP PRN (20:22)
[2019-01-12] MEDS ORDERED: Hydrocortisone Acetate 25 MG Supp RECTAL PRN (20:22)
[2019-01-12] MEDS ORDERED: Benzocaine/Menthol 20%-0.5% Spray 56 GM Canister TOP PRN (20:22)
[2019-01-12] MEDS ORDERED: Magnesium Hydroxide 400 MG/5 ML Susp 30 ML Cup PO PRN (20:22)
[2019-01-12] MEDS: Ibuprofen 600 MG Tab PO PRN (21:57)
[2019-01-13] MEDS: Ibuprofen 600 MG Tab PO PRN ×3 (05:38→23:22)
--- NOTE | 2019-01-13 08:38 | PCM.PNPP ---
<Marcelo Luna - Last Filed: 01/13/19 08:44> - General Info Date of Service: 01/13/19 Admission Dx/Problem (Free Text): Patient Status Order with Admit Dx/Problem 01/11/19 20:30 Patient Status [ADT] Routine Admission Diagnosis/Problem Admission Diagnosis/Problem Pre-eclampsia Subjective Update: Dania is feeling well today. Her pain is well-controlled with motrin. She is tolerating oral intake well without nausea or vomiting. She is having some cramping with . She is having some vaginal bleeding, changing a pad every few hours as she gets up to use the restroom. She feels that the bleeding is slightly more in volume than a normal menstrual period. She has been up to urinate several times, and has urinated what she feels is a normal amount for her. She had a headache last night, but that resolved once she was able to sleep. She is and that has been going well. Functional Status: Reports: Pain Controlled - Review of Systems General: Reports: No Symptoms HEENT: Reports: No Symptoms Pulmonary: Reports: No Symptoms Cardiovascular: Reports: No Symptoms Gastrointestinal: Reports: No Symptoms Genitourinary: Reports: No Symptoms Musculoskeletal: Reports: No Symptoms Skin: Reports: No Symptoms Neurological: Reports: No Symptoms Psychiatric: Reports: No Symptoms - General Info Date of Service: 01/13/19 - Patient Data Vital Signs - Most Recent: Last Vital Signs Temp 98.8 F 01/13/19 08:18 Pulse 70 01/13/19 08:13 Resp 16 01/13/19 08:13 BP 127/96 H 01/13/19 08:13 Pulse Ox 94 L 01/13/19 08:13 Weight - Most Recent: 102.512 kg Lab Results - Last 24 Hours: Laboratory Results - last 24 hr 01/12/19 01/13/19 01/13/19 Range/Units 09:00 05:15 05:15 WBC 14.20 H 16.66 H (3.98-10.04) K/mm3 RBC 3.80 L 2.88 L (3.98-5.22) M/mm3 Hgb 10.9 L 8.2 L D (11.2-15.7) gm/dl Hct 33.5 L 25.9 L (34.1-44.9) % MCV 88.2 89.9 (79.4-94.8) fl MCH 28.7 28.5 (25.6-32.2) pg MCHC 32.5 31.7 L (32.2-35.5) g/dl RDW Std Deviation 45.5 45.5 (36.4-46.3) fL Plt Count 236 206 (182-369) K/mm3 MPV 11.1 11.9 (9.4-12.3) fl Neut % (Auto) 81.9 H 73.5 H (34.0-71.1) % Lymph % (Auto) 12.3 L 17.9 L (19.3-51.7) % [place] % (Auto) 5.0 7.4 (4.7-12.5) % Eos % (Auto) 0.4 L 0.8 (0.7-5.8) Baso % (Auto) 0.2 0.2 (0.1-1.2) % Neut # (Auto) 11.63 H 12.25 H (1.56-6.13) K/mm3 Lymph # (Auto) 1.75 2.98 (1.18-3.74) K/mm3 [place] # (Auto) 0.71 H 1.23 H (0.24-0.36) K/mm3 Eos # (Auto) 0.05 0.13 (0.04-0.36) K/mm3 Baso # (Auto) 0.03 0.03 (0.01-0.08) K/mm3 Sodium 139 (136-145) mEq/L Potassium 4.1 (3.5-5.1) mEq/L Chloride 108 H (98-107) mEq/L Carbon Dioxide 23 (21-32) mEq/L Anion Gap 12.1 (5-15) BUN 16 (7-18) mg/dL Creatinine 1.0 (0.55-1.02) mg/dL Est Cr Clr Drug Dosing 79.81 mL/min Estimated GFR (MDRD) > 60 (>60) mL/min BUN/Creatinine Ratio 16.0 (14-18) Glucose 62 L (74-106) mg/dL Calcium 7.8 L (8.5-10.1) mg/dL Total Bilirubin 0.7 (0.2-1.0) mg/dL AST 26 (15-37) U/L ALT 11 L (14-59) U/L Alkaline Phosphatase 102 (46-116) U/L Total Protein 4.4 L (6.4-8.2) g/dl Albumin 1.5 L (3.4-5.0) g/dl Globulin 2.9 gm/dL Albumin/Globulin Ratio 0.5 L (1-2) Med Orders - Current: Current Medications Acetaminophen (Tylenol) 650 mg PO Q6H PRN PRN Reason: mild pain or fever Benzocaine/Menthol (Dermoplast Pain Relief [place]) 0 gm TOP ASDIRECTED PRN PRN Reason: Perineal Comfort Measure Last Admin: 01/12/19 20:31 Dose: 1 applic Docusate Sodium (Colace) 100 mg PO BID PRN PRN Reason: Constipation Ferrous Sulfate (Ferrous Sulfate) 325 mg PO WITHBREAKFAST ALFREDITO Hydrocortisone Acetate (Anucort-Hc) 25 mg RECTAL BID PRN PRN Reason: Hemorrhoid pain Oxytocin/Lactated Ringer's (Pitocin In Lr 10 Units/1,000 Ml) 10 unit in 1,000 mls @ 100 mls/hr IV TITRATE ALFREDITO; Protocol Ibuprofen (Motrin) 600 mg PO Q6H PRN PRN Reason: Mild pain or fever Last Admin: 01/13/19 05:38 Dose: 600 mg Magnesium Hydroxide (Milk Of Magnesia) 30 ml PO BEDTIME PRN PRN Reason: Constipation Prenat Multivit/[place]/Iron/Folic Ac ( Plus Iron) 1 each PO DAILY [facility] Santino Davis (Tucks) 1 pad TOP ASDIRECTED PRN PRN Reason: Perineal Comfort Measure Last Admin: 01/12/19 20:32 Dose: 1 applic Discontinued Medications Acetaminophen (Tylenol) 650 mg PO Q6H PRN PRN Reason: Pain (Mild 1-3) and fever Ephedrine Sulfate (Ephedrine Sulfate) 5 mg IVPUSH ASDIRECTED PRN PRN Reason: Hypotension Fentanyl (Sublimaze) 100 mcg EPIDUR Q3H PRN PRN Reason: Pain Last Admin: 01/12/19 12:43 Dose: 100 mcg Fentanyl/Bupivacaine HCl (Fentanyl/Bupivacaine/Ns 2 Mcg-0.125% 250 Ml) 2 mcg EPIDUR CONTINUOUS PRN PRN Reason: Pain Last Admin: 01/12/19 12:43 Dose: 2 mcg Lactated Ringer's (Ringers, Lactated) 1,000 mls @ 100 mls/hr IV ASDIRECTED ALFREDITO Last Admin: 01/12/19 04:16 Dose: 100 mls/hr Oxytocin/Lactated Ringer's (Pitocin In Lr 10 Units/1,000 Ml) 10 unit in 1,000 mls @ 100 mls/hr IV .CONTINUOUS ALFREDITO Ampicillin Sodium 2 gm/ Sodium (Chloride) 100 mls @ 200 mls/hr IV ONETIME ONE Stop: 01/12/19 04:29 Last Admin: 01/12/19 04:16 Dose: 200 mls/hr Ampicillin Sodium 1 gm/ Sodium (Chloride) 100 mls @ 200 mls/hr IV Q4H ALFREDITO Last Admin: 01/12/19 12:10 Dose: 200 mls/hr Oxytocin/Lactated Ringer's (Pitocin In Lr 10 Units/1,000 Ml) 10 unit in 1,000 mls @ 12 mls/hr IV TITRATE ALFREDITO; Protocol Last Titration: 01/12/19 09:15 Dose: 6 munits/min, 36 mls/hr Misoprostol (Cytotec) 25 mcg PO Q4H PRN PRN Reason: cervical ripening Misoprostol (Cytotec) Confirm Administered Dose 25 mcg .ROUTE .STK-MED ONE Stop: 01/11/19 20:42 Last Admin: 01/12/19 03:14 Dose: 25 mcg Misoprostol (Cytotec) Confirm Administered Dose 25 mcg .ROUTE .STK-MED ONE Stop: 01/12/19 03:11 Misoprostol (Cytotec) 25 mcg PO Q4H PRN PRN Reason: cervical ripening Misoprostol (Cytotec) 25 mcg PO Q4H PRN PRN Reason: cervical ripening Nalbuphine HCl (Nubain) 10 mg IVPUSH Q2H PRN PRN Reason: Pain Ondansetron HCl (Zofran) 4 mg IVPUSH ONETIME PRN PRN Reason: Nausea/Vomiting Sodium Chloride (Saline Flush) 10 ml FLUSH ASDIRECTED PRN PRN Reason: Keep Vein Open Sodium Chloride (Saline Flush) 10 ml FLUSH ASDIRECTED PRN PRN Reason: Keep Vein Open - Interaction Support Person: Significant Other - Recovery Exam Fundal Tone: Firm Fundal Level: At Umbilicus Fundal Placement: Midline Lochia Amount: Small Lochia Color: Rubra/Red Perineum Description: Other (see below) Other Perinuem Description: 1st degree with repair Episiotomy/Laceration: Approximated Bladder Status: Voiding - Exam General: Alert, Oriented, No Acute Distress HEENT: Pupils Equal, Pupils Reactive, EOMI, Mucous Membr. Moist/[place] Neck: Supple Lungs: Clear to Auscultation, Normal Respiratory Effort Cardiovascular: Regular Rate, Regular Rhythm GI/Abdominal Exam: Normal Bowel Sounds, Soft, Other (Mild appropriate abdominal tenderness; uterus just below level of umbilicus) Extremities: Normal Inspection, Non-Tender, Pedal Edema Skin: Warm, Dry, Intact Wound/Incisions: Healing Well Neurological: No New Focal Deficit Psy/Mental Status: Alert, Normal Affect, Normal Mood - Problem List & Annotations (1) 37 weeks gestation of SNOMED Code(s): 66663301 Code(s): Z3A.37 - 37 WEEKS GESTATION OF Status: Acute Current Visit: Yes (2) Preeclampsia SNOMED Code(s): 099385957 Code(s): O14.90 - UNSPECIFIED PRE-ECLAMPSIA, UNSPECIFIED TRIMESTER Status: Acute Current Visit: Yes (3) Gastroesophageal reflux in SNOMED Code(s): 17231581594285469 Code(s): O99.619 - DISEASES OF THE DGSTV SYS COMP , UNSP TRIMESTER; K21.9 - GASTRO-ESOPHAGEAL REFLUX DISEASE WITHOUT ESOPHAGITIS Status: Acute Current Visit: Yes (4) Obesity SNOMED Code(s): 145561243, 128876664 Code(s): E66.9 - OBESITY, UNSPECIFIED Status: Acute Current Visit: Yes (5) GBS (group B Streptococcus carrier), +RV culture, currently SNOMED Code(s): 4205731393978, 490298578, 7179508082653 Code(s): O99.820 - STREPTOCOCCUS B CARRIER STATE COMPLICATING Status: Acute Current Visit: Yes (6) Vaginal delivery SNOMED Code(s): 825809711 Code(s): O80 - ENCOUNTER FOR FULL-TERM UNCOMPLICATED DELIVERY Status: Acute Current Visit: Yes (7) Retained placenta SNOMED Code(s): 987190534 Code(s): O73.0 - RETAINED PLACENTA WITHOUT HEMORRHAGE Status: Acute Current Visit: Yes (8) First degree laceration of perineum during delivery, SNOMED Code(s): 028107591 Code(s): O70.0 - FIRST DEGREE PERINEAL LACERATION DURING DELIVERY Status: Acute Current Visit: Yes - Problem List Review Problem List Initiated/Reviewed/Updated: Yes - Assessment Assessment:: 28-year-old female s/p normal vaginal delivery PPD #1, complicated by preeclampsia, GBS+, and retained placenta. - Plan Plan:: Doing well Breast-feeding with minimal difficulty. Assist as needed Lochia moderate. Continue to monitor for appropriate lochia. Continue routine care Continue to monitor vitals for signs of endometritis Discharge home likely tomorrow <Fer Dey - Last Filed: 01/13/19 09:01> - Review of Systems Systems Review Comment:: I have seen and evaluated the patient with the medical student and agree with the assessment and plan as per the note above. Monitor vitals for elevated blood pressures that may necessitate treatment. Monitor for signs and symptoms of endometritis Anticipate discharge home tomorrow, PPD #2. Fer Dey M.D. 9:01 AM 01/13/2019 - Patient Data Vital Signs - Most Recent: Last Vital Signs Temp 37.1 C 01/13/19 08:18 Pulse 70 01/13/19 08:13 Resp 16 01/13/19 08:13 BP 127/96 H 01/13/19 08:13 Pulse Ox 94 L 01/13/19 08:13 Lab Results - Last 24 Hours: Laboratory Results - last 24 hr 01/12/19 01/13/19 01/13/19 Range/Units 09:00 05:15 05:15 WBC 14.20 H 16.66 H (3.98-10.04) K/mm3 RBC 3.80 L 2.88 L (3.98-5.22) M/mm3 Hgb 10.9 L 8.2 L D (11.2-15.7) gm/dl Hct 33.5 L 25.9 L (34.1-44.9) % MCV 88.2 89.9 (79.4-94.8) fl MCH 28.7 28.5 (25.6-32.2) pg MCHC 32.5 31.7 L (32.2-35.5) g/dl RDW Std Deviation 45.5 45.5 (36.4-46.3) fL Plt Count 236 206 (182-369) K/mm3 MPV 11.1 11.9 (9.4-12.3) fl Neut % (Auto) 81.9 H 73.5 H (34.0-71.1) % Lymph % (Auto) 12.3 L 17.9 L (19.3-51.7) % [place] % (Auto) 5.0 7.4 (4.7-12.5) % Eos % (Auto) 0.4 L 0.8 (0.7-5.8) Baso % (Auto) 0.2 0.2 (0.1-1.2) % Neut # (Auto) 11.63 H 12.25 H (1.56-6.13) K/mm3 Lymph # (Auto) 1.75 2.98 (1.18-3.74) K/mm3 [place] # (Auto) 0.71 H 1.23 H (0.24-0.36) K/mm3 Eos # (Auto) 0.05 0.13 (0.04-0.36) K/mm3 Baso # (Auto) 0.03 0.03 (0.01-0.08) K/mm3 Sodium 139 (136-145) mEq/L Potassium 4.1 (3.5-5.1) mEq/L Chloride 108 H (98-107) mEq/L Carbon Dioxide 23 (21-32) mEq/L Anion Gap 12.1 (5-15) BUN 16 (7-18) mg/dL Creatinine 1.0 (0.55-1.02) mg/dL Est Cr Clr Drug Dosing 79.81 mL/min Estimated GFR (MDRD) > 60 (>60) mL/min BUN/Creatinine Ratio 16.0 (14-18) Glucose 62 L (74-106) mg/dL Calcium 7.8 L (8.5-10.1) mg/dL Total Bilirubin 0.7 (0.2-1.0) mg/dL AST 26 (15-37) U/L ALT 11 L (14-59) U/L Alkaline Phosphatase 102 (46-116) U/L Total Protein 4.4 L (6.4-8.2) g/dl Albumin 1.5 L (3.4-5.0) g/dl Globulin 2.9 gm/dL Albumin/Globulin Ratio 0.5 L (1-2) Med Orders - Current: Current Medications Acetaminophen (Tylenol) 650 mg PO Q6H PRN PRN Reason: mild pain or fever Benzocaine/Menthol (Dermoplast Pain Relief [place]) 0 gm TOP ASDIRECTED PRN PRN Reason: Perineal Comfort Measure Last Admin: 01/12/19 20:31 Dose: 1 applic Docusate Sodium (Colace) 100 mg PO BID PRN PRN Reason: Constipation Ferrous Sulfate (Ferrous Sulfate) 325 mg PO WITHBREAKFAST ALFREDITO Hydrocortisone Acetate (Anucort-Hc) 25 mg RECTAL BID PRN PRN Reason: Hemorrhoid pain Oxytocin/Lactated Ringer's (Pitocin In Lr 10 Units/1,000 Ml) 10 unit in 1,000 mls @ 100 mls/hr IV TITRATE ALFREDITO; Protocol Ibuprofen (Motrin) 600 mg PO Q6H PRN PRN Reason: Mild pain or fever Last Admin: 01/13/19 05:38 Dose: 600 mg Magnesium Hydroxide (Milk Of Magnesia) 30 ml PO BEDTIME PRN PRN Reason: Constipation Prenat Multivit/[place]/Iron/Folic Ac ( Plus Iron) 1 each PO DAILY [facility] Santino Davsi ([place]) 1 pad TOP ASDIRECTED PRN PRN Reason: Perineal Comfort Measure Last Admin: 01/12/19 20:32 Dose: 1 applic Discontinued Medications Acetaminophen (Tylenol) 650 mg PO Q6H PRN PRN Reason: Pain (Mild 1-3) and fever Ephedrine Sulfate (Ephedrine Sulfate) 5 mg IVPUSH ASDIRECTED PRN PRN Reason: Hypotension Fentanyl (Sublimaze) 100 mcg EPIDUR Q3H PRN PRN Reason: Pain Last Admin: 01/12/19 12:43 Dose: 100 mcg Fentanyl/Bupivacaine HCl (Fentanyl/Bupivacaine/Ns 2 Mcg-0.125% 250 Ml) 2 mcg EPIDUR CONTINUOUS PRN PRN Reason: Pain Last Admin: 01/12/19 12:43 Dose: 2 mcg Lactated Ringer's (Ringers, Lactated) 1,000 mls @ 100 mls/hr IV ASDIRECTED [facility] Last Admin: 01/12/19 04:16 Dose: 100 mls/hr Oxytocin/Lactated Ringer's (Pitocin In Lr 10 Units/1,000 Ml) 10 unit in 1,000 mls @ 100 mls/hr IV .CONTINUOUS ALFREDITO Ampicillin Sodium 2 gm/ Sodium (Chloride) 100 mls @ 200 mls/hr IV ONETIME ONE Stop: 01/12/19 04:29 Last Admin: 01/12/19 04:16 Dose: 200 mls/hr Ampicillin Sodium 1 gm/ Sodium (Chloride) 100 mls @ 200 mls/hr IV Q4H ALFREDITO Last Admin: 01/12/19 12:10 Dose: 200 mls/hr Oxytocin/Lactated Ringer's (Pitocin In Lr 10 Units/1,000 Ml) 10 unit in 1,000 mls @ 12 mls/hr IV TITRATE ALFREDITO; Protocol Last Titration: 01/12/19 09:15 Dose: 6 munits/min, 36 mls/hr Misoprostol (Cytotec) 25 mcg PO Q4H PRN PRN Reason: cervical ripening Misoprostol (Cytotec) Confirm Administered Dose 25 mcg .ROUTE .STK-MED ONE Stop: 01/11/19 20:42 Last Admin: 01/12/19 03:14 Dose: 25 mcg Misoprostol (Cytotec) Confirm Administered Dose 25 mcg .ROUTE .STK-MED ONE Stop: 01/12/19 03:11 Misoprostol (Cytotec) 25 mcg PO Q4H PRN PRN Reason: cervical ripening Misoprostol (Cytotec) 25 mcg PO Q4H PRN PRN Reason: cervical ripening Nalbuphine HCl (Nubain) 10 mg IVPUSH Q2H PRN PRN Reason: Pain Ondansetron HCl (Zofran) 4 mg IVPUSH ONETIME PRN PRN Reason: Nausea/Vomiting Sodium Chloride (Saline Flush) 10 ml FLUSH ASDIRECTED PRN PRN Reason: Keep Vein Open Sodium Chloride (Saline Flush) 10 ml FLUSH ASDIRECTED PRN PRN Reason: Keep Vein Open - My Orders Last 24 Hours: My Active Orders 01/12/19 20:22 Patient Status [ADT] Routine Activity as Tolerated [RC] PER UNIT ROUTINE May Shower [RC] ASDIRECTED Notify Provider Vital Signs [RC] ASDIRECTED Vital Signs [RC] 03,09,15,21 Acetaminophen [Tylenol] 650 mg PO Q6H PRN Benzocaine/Menthol [Dermoplast Pain Relief [place]] See Dose Instructions TOP ASDIRECTED PRN Docusate Sodium [Colace] 100 mg PO BID PRN Hydrocortisone Acetate [Anucort-HC] 25 mg RECTAL BID PRN Ibuprofen [Motrin] 600 mg PO Q6H PRN Magnesium Hydroxide [Milk of Magnesia] 30 ml PO BEDTIME PRN Oxytocin/Lactated Ringers [Pitocin in LR 10 Units/1,000 ML] 10 unit in 1,000 ml IV TITRATE Witch Susan [Tucks] 1 pad TOP ASDIRECTED PRN Assess Lochia [WOMSER] Per Unit Routine Assess Uterine Involution [WOMSER] Per Unit Routine Breast Pump [WOMSER] Per Unit Routine Heat Therapy [OM.PC] PRN Ice Therapy [OM.PC] Per Unit Routine Medication Administration Instruction [OM.PC] Routine Perineal Care [OM.PC] Per Unit Routine Peripheral IV Discontinue [OM.PC] Routine Sitz Bath [OM.PC] Per Unit Routine 01/12/19 Dinner Regular Diet [DIET] 01/13/19 07:00 Ferrous Sulfate 325 mg PO WITHBREAKFAST 01/13/19 09:00 Vit with Ca/FA/Iron [ Plus Iron] 1 each PO DAILY 01/13/19 20:22 Heat Therapy [OM.PC] PRN
[2019-01-13] MEDS: Prenatal Multivitamin with Calcium/Folic Acid/Iron Tab PO SCH (11:49)
[2019-01-13] MEDS: Ferrous Sulfate 325 MG Tab PO SCH (11:49)
[2019-01-13] MEDS: Docusate Sodium 100 MG Cap PO PRN ×2 (11:49→23:22)
--- NOTE | 2019-01-13 12:42 | PCM48HPAN ---
Post Anesthesia Note - EVALUATION WITHIN 48HRS OF ANESTHETIC Vital Signs in Normal Range: Yes Patient Participated in Evaluation: Yes Respiratory Function Stable: Yes Airway Patent: Yes Cardiovascular Function Stable: Yes Hydration Status Stable: Yes Pain Control Satisfactory: Yes Nausea and Vomiting Control Satisfactory: Yes Mental Status Recovered: Yes Vital Signs: Last Vital Signs Temp 37.1 C 01/13/19 08:18 Pulse 70 01/13/19 08:13 Resp 16 01/13/19 08:13 BP 127/96 H 01/13/19 08:13 Pulse Ox 94 L 01/13/19 08:13 - COMMENTS/OBSERVATIONS Free Text/Narrative:: Viktoria reports good strength in bilateral lower extremities and has no further questions at this time.
[2019-01-13] MEDS ORDERED: FLU Vacc QS2019-20(6MOS+)/PF 60 MCG/0.5 ML SYRINGE IM ONE (22:26)
--- NOTE | 2019-01-14 10:33 | PCM.DCSUM1 ---
Discharge Summary - Hospital Course Free Text/Narrative:: [facility], [place], operated by [facility] LIVE L/D Delivery Note Patient Name: ANTONIA GAYTAN Date of : 89 Patient Status: Inpatient Attending Provider: Fer Dey Date: 01/12/19 16:45 Initialization Date: 01/12/19 16:45 <Marcelo Luna - Last Filed: 01/12/19 16:56> L & D Note - General Info Date of Service: 01/12/19 - Delivery Note Labor: Augmented by ARM, Augmented by Oxytocin Cervical Ripening Method: Misoprostil Delivery Outcome: Livebirth Delivery Method: Spontaneous Vaginal Delivery-Single Infant Delivery Mode: Spontaneous Presentation: Left Occiput Anterior (MAHESH) Nuchal Cord: Present, Reduced (after delivery) Anesthesia Type: Epidural Amniotic Fluid Description: Clear Episiotomy Type: None Laceration: 1st Degree, Perineal, Periurethral Suture type: Vicryl Suture size: 3-0 Placenta: Curettage, Manual Removal Cord: 3 Vessels Estimated Blood Loss: 500 Resuscitation Needed: No : Bulb Syringe, Stimulated, Warmed, [place] Used, Warmer Used Provider: Fer Dey Score 1 min: 8 Score 5 min: 9 Post Delivery Events: Retained Placenta Second Stage Interventions: Reports: Pushing Effectively, Pushing, Stirrups/Leg Supports Delivery Comments (Free Text/Narrative):: Stage I: Antonia Gaytan was admitted for medical induction of labor. She was having blurry vision, persistent elevated blood pressures above 140/90, and proteinuria. On admission her cervix was dilated to 1 cm. She was GBS positive. Treated with ampicillin, and received a total of 3 doses. She was administered cytotec for cervical ripening. She was started on Pitocin for augmentation of labor. She had artificial rupture membranes with clear fluid. She was given an epidural for anesthesia. She progressed to complete and pushing. Stage II: On 01/12/2019 she had a normal vaginal delivery of a live female at . Apgars of 8 & 9. Weight of 2540 g (5 lbs 9.6 oz). Length of 19.5 inches. There was a nuchal cord, which was reduced after delivery of the infant. Infant was delivered in MAHESH position. The cord was doubly clamped and cut by father of the . was placed on mother's abdomen. Stage III: Avulsion of the umbilical cord during delivery of the placenta. The placenta was then manually extracted in multiple pieces. The uterine cavity was then curettaged in all quadrants with good cri noted, and no additional tissue removed. The uterus had good tone after removal of all portions of the retained placenta. Three vessel cord. She was given pitocin and fundal massage. She had a first-degree left perineal laceration that was repaired with 3-0 Vicryl. She also had a small 1st-degree ila-urethral laceration that was not bleeding, and was not repaired. Mom and baby were stable to recovery. EBL of 500 mL. - General Info Date of Service: 01/12/19 - Patient Data Vitals - Most Recent: Last Vital Signs Temp 97.9 F 01/11/19 15:57 Pulse 66 01/11/19 15:57 Resp 16 01/11/19 15:57 BP 149/83 H 01/11/19 15:57 Pulse Ox Weight - Most Recent: 102.512 kg I&O - Last 24 Hours: Intake & Output 01/12/19 01/12/19 01/12/19 06:59 14:59 22:59 Intake Total 240 Balance 240 Lab Results Last 24 Hours: Laboratory Results - last 24 hr 01/11/19 01/12/19 Range/Units 14:33 09:00 WBC 14.20 H (3.98-10.04) K/mm3 RBC 3.80 L (3.98-5.22) M/mm3 Hgb 10.9 L (11.2-15.7) gm/dl Hct 33.5 L (34.1-44.9) % MCV 88.2 (79.4-94.8) fl MCH 28.7 (25.6-32.2) pg MCHC 32.5 (32.2-35.5) g/dl RDW Std Deviation 45.5 (36.4-46.3) fL Plt Count 236 (182-369) K/mm3 MPV 11.1 (9.4-12.3) fl Neut % (Auto) 81.9 H (34.0-71.1) % Lymph % (Auto) 12.3 L (19.3-51.7) % Banks % (Auto) 5.0 (4.7-12.5) % Eos % (Auto) 0.4 L (0.7-5.8) Baso % (Auto) 0.2 (0.1-1.2) % Neut # (Auto) 11.63 H (1.56-6.13) K/mm3 Lymph # (Auto) 1.75 (1.18-3.74) K/mm3 Banks # (Auto) 0.71 H (0.24-0.36) K/mm3 Eos # (Auto) 0.05 (0.04-0.36) K/mm3 Baso # (Auto) 0.03 (0.01-0.08) K/mm3 RPR Non-reactive (NONREACTIVE) Med Orders - Current: Current Medications Acetaminophen (Tylenol) 650 mg PO Q6H PRN PRN Reason: Pain (Mild 1-3) and fever Ephedrine Sulfate (Ephedrine Sulfate) 5 mg IVPUSH ASDIRECTED PRN PRN Reason: Hypotension Fentanyl (Sublimaze) 100 mcg EPIDUR Q3H PRN PRN Reason: Pain Last Admin: 01/12/19 12:43 Dose: 100 mcg Fentanyl/Bupivacaine HCl (Fentanyl/Bupivacaine/Ns 2 Mcg-0.125% 250 Ml) 2 mcg EPIDUR CONTINUOUS PRN PRN Reason: Pain Last Admin: 01/12/19 12:43 Dose: 2 mcg Lactated Ringer's (Ringers, Lactated) 1,000 mls @ 100 mls/hr IV ASDIRECTED ALFREDITO Last Admin: 01/12/19 04:16 Dose: 100 mls/hr Oxytocin/Lactated Ringer's (Pitocin In Lr 10 Units/1,000 Ml) 10 unit in 1,000 mls @ 100 mls/hr IV .CONTINUOUS ALFREDITO Ampicillin Sodium 1 gm/ Sodium (Chloride) 100 mls @ 200 mls/hr IV Q4H ALFREDITO Last Admin: 01/12/19 12:10 Dose: 200 mls/hr Oxytocin/Lactated Ringer's (Pitocin In Lr 10 Units/1,000 Ml) 10 unit in 1,000 mls @ 12 mls/hr IV TITRATE ALFREDITO; Protocol Last Titration: 01/12/19 09:15 Dose: 6 munits/min, 36 mls/hr Misoprostol (Cytotec) 25 mcg PO Q4H PRN PRN Reason: cervical ripening Nalbuphine HCl (Nubain) 10 mg IVPUSH Q2H PRN PRN Reason: Pain Ondansetron HCl (Zofran) 4 mg IVPUSH ONETIME PRN PRN Reason: Nausea/Vomiting Sodium Chloride (Saline Flush) 10 ml FLUSH ASDIRECTED PRN PRN Reason: Keep Vein Open Sodium Chloride (Saline Flush) 10 ml FLUSH ASDIRECTED PRN PRN Reason: Keep Vein Open Discontinued Medications Ampicillin Sodium 2 gm/ Sodium (Chloride) 100 mls @ 200 mls/hr IV ONETIME ONE Stop: 01/12/19 04:29 Last Admin: 01/12/19 04:16 Dose: 200 mls/hr Misoprostol (Cytotec) 25 mcg PO Q4H PRN PRN Reason: cervical ripening Misoprostol (Cytotec) Confirm Administered Dose 25 mcg .ROUTE .STK-MED ONE Stop: 01/11/19 20:42 Last Admin: 01/12/19 03:14 Dose: 25 mcg Misoprostol (Cytotec) Confirm Administered Dose 25 mcg .ROUTE .STK-MED ONE Stop: 01/12/19 03:11 Misoprostol (Cytotec) 25 mcg PO Q4H PRN PRN Reason: cervical ripening - Problem List & Annotations (1) 37 weeks gestation of SNOMED Code(s): 34670802 Code(s): Z3A.37 - 37 WEEKS GESTATION OF Status: Acute Current Visit: Yes (2) Preeclampsia SNOMED Code(s): 592168338 Code(s): O14.90 - UNSPECIFIED PRE-ECLAMPSIA, UNSPECIFIED TRIMESTER Status: Acute Current Visit: Yes (3) Gastroesophageal reflux in SNOMED Code(s): 34145406572944732 Code(s): O99.619 - DISEASES OF THE DGSTV SYS COMP , UNSP TRIMESTER; K21.9 - GASTRO-ESOPHAGEAL REFLUX DISEASE WITHOUT ESOPHAGITIS Status: Acute Current Visit: Yes (4) Obesity SNOMED Code(s): 147067518, 857346350 Code(s): E66.9 - OBESITY, UNSPECIFIED Status: Acute Current Visit: Yes (5) GBS (group B Streptococcus carrier), +RV culture, currently SNOMED Code(s): 9675748528544, 686496606, 6940883811050 Code(s): O99.820 - STREPTOCOCCUS B CARRIER STATE COMPLICATING Status: Acute Current Visit: Yes (6) Vaginal delivery SNOMED Code(s): 881937991 Code(s): O80 - ENCOUNTER FOR FULL-TERM UNCOMPLICATED DELIVERY Status: Acute Current Visit: Yes (7) Retained placenta SNOMED Code(s): 951275984 Code(s): O73.0 - RETAINED PLACENTA WITHOUT HEMORRHAGE Status: Acute Current Visit: Yes (8) First degree laceration of perineum during delivery, SNOMED Code(s): 086927726 Code(s): O70.0 - FIRST DEGREE PERINEAL LACERATION DURING DELIVERY Status: Acute Current Visit: Yes - Problem List Review Problem List Initiated/Reviewed/Updated: Yes - Plan Plan:: Admit to inpatient following normal spontaneous vaginal delivery Continue Pitocin per unit protocol following delivery of placenta and lactated Ringer's until tolerating regular diet Regular diet Vitals per unit routine Ibuprofen and Tylenol for pain control Assist with breast-feeding as needed Continue to monitor lochia Monitor temperature for signs of endometritis Anticipate discharge home on day #2 <Fer Dey - Last Filed: 01/12/19 17:30> - Patient Data Vitals - Most Recent: Last Vital Signs Temp 36.6 C 01/11/19 15:57 Pulse 66 01/11/19 15:57 Resp 16 01/11/19 15:57 BP 149/83 H 01/11/19 15:57 Pulse Ox I&O - Last 24 Hours: Intake & Output 01/12/19 01/12/19 01/12/19 06:59 14:59 22:59 Intake Total 240 Balance 240 Lab Results Last 24 Hours: Laboratory Results - last 24 hr 01/11/19 01/12/19 Range/Units 14:33 09:00 WBC 14.20 H (3.98-10.04) K/mm3 RBC 3.80 L (3.98-5.22) M/mm3 Hgb 10.9 L (11.2-15.7) gm/dl Hct 33.5 L (34.1-44.9) % MCV 88.2 (79.4-94.8) fl MCH 28.7 (25.6-32.2) pg MCHC 32.5 (32.2-35.5) g/dl RDW Std Deviation 45.5 (36.4-46.3) fL Plt Count 236 (182-369) K/mm3 MPV 11.1 (9.4-12.3) fl Neut % (Auto) 81.9 H (34.0-71.1) % Lymph % (Auto) 12.3 L (19.3-51.7) % Banks % (Auto) 5.0 (4.7-12.5) % Eos % (Auto) 0.4 L (0.7-5.8) Baso % (Auto) 0.2 (0.1-1.2) % Neut # (Auto) 11.63 H (1.56-6.13) K/mm3 Lymph # (Auto) 1.75 (1.18-3.74) K/mm3 Banks # (Auto) 0.71 H (0.24-0.36) K/mm3 Eos # (Auto) 0.05 (0.04-0.36) K/mm3 Baso # (Auto) 0.03 (0.01-0.08) K/mm3 RPR Non-reactive (NONREACTIVE) Med Orders - Current: Current Medications Acetaminophen (Tylenol) 650 mg PO Q6H PRN PRN Reason: Pain (Mild 1-3) and fever Ephedrine Sulfate (Ephedrine Sulfate) 5 mg IVPUSH ASDIRECTED PRN PRN Reason: Hypotension Fentanyl (Sublimaze) 100 mcg EPIDUR Q3H PRN PRN Reason: Pain Last Admin: 01/12/19 12:43 Dose: 100 mcg Fentanyl/Bupivacaine HCl (Fentanyl/Bupivacaine/Ns 2 Mcg-0.125% 250 Ml) 2 mcg EPIDUR CONTINUOUS PRN PRN Reason: Pain Last Admin: 01/12/19 12:43 Dose: 2 mcg Lactated Ringer's (Ringers, Lactated) 1,000 mls @ 100 mls/hr IV ASDIRECTED ALFREDITO Last Admin: 01/12/19 04:16 Dose: 100 mls/hr Oxytocin/Lactated Ringer's (Pitocin In Lr 10 Units/1,000 Ml) 10 unit in 1,000 mls @ 100 mls/hr IV .CONTINUOUS ALFREDITO Ampicillin Sodium 1 gm/ Sodium (Chloride) 100 mls @ 200 mls/hr IV Q4H ALFREDITO Last Admin: 01/12/19 12:10 Dose: 200 mls/hr Oxytocin/Lactated Ringer's (Pitocin In Lr 10 Units/1,000 Ml) 10 unit in 1,000 mls @ 12 mls/hr IV TITRATE ALFREDITO; Protocol Last Titration: 01/12/19 09:15 Dose: 6 munits/min, 36 mls/hr Misoprostol (Cytotec) 25 mcg PO Q4H PRN PRN Reason: cervical ripening Nalbuphine HCl (Nubain) 10 mg IVPUSH Q2H PRN PRN Reason: Pain Ondansetron HCl (Zofran) 4 mg IVPUSH ONETIME PRN PRN Reason: Nausea/Vomiting Sodium Chloride (Saline Flush) 10 ml FLUSH ASDIRECTED PRN PRN Reason: Keep Vein Open Sodium Chloride (Saline Flush) 10 ml FLUSH ASDIRECTED PRN PRN Reason: Keep Vein Open Discontinued Medications Ampicillin Sodium 2 gm/ Sodium (Chloride) 100 mls @ 200 mls/hr IV ONETIME ONE Stop: 01/12/19 04:29 Last Admin: 01/12/19 04:16 Dose: 200 mls/hr Misoprostol (Cytotec) 25 mcg PO Q4H PRN PRN Reason: cervical ripening Misoprostol (Cytotec) Confirm Administered Dose 25 mcg .ROUTE .STK-MED ONE Stop: 01/11/19 20:42 Last Admin: 01/12/19 03:14 Dose: 25 mcg Misoprostol (Cytotec) Confirm Administered Dose 25 mcg .ROUTE .STK-MED ONE Stop: 01/12/19 03:11 Misoprostol (Cytotec) 25 mcg PO Q4H PRN PRN Reason: cervical ripening - My Orders Last 24 Hours: My Active Orders 01/11/19 20:30 Patient Status [ADT] Routine Activity as Tolerated [RC] PFP Communication Order [RC] ASDIRECTED Notify Provider [RC] PFP Notify Provider [RC] PRN Vital Signs [RC] PER UNIT ROUTINE Acetaminophen [Tylenol] 650 mg PO Q6H PRN Lactated Ringers [Ringers, Lactated] 1,000 ml IV ASDIRECTED Nalbuphine [Nubain] 10 mg IVPUSH Q2H PRN Oxytocin/Lactated Ringers [Pitocin in LR 10 Units/1,000 ML] 10 unit in 1,000 ml IV .CONTINUOUS Sodium Chloride 0.9% [Saline Flush] 10 ml FLUSH ASDIRECTED PRN Electronic Heart Tones Ext w TOCO [WOMSER] Routine Electronic Heart Tones Internal [WOMSER] Per Unit Routine Peripheral IV Insertion Adult [OM.PC] Routine 01/11/19 20:31 Heart Tones [RC] ASDIRECTED Peripheral IV Care [RC] . DIRECTED Pump Management, Intrathecal [RC] ASDIRECTED 01/11/19 20:32 Notify Provider Vital Signs [RC] PRN 01/11/19 20:35 Communication Order [RC] ASDIRECTED Communication Order [RC] ASDIRECTED Communication Order [RC] ASDIRECTED Notify Provider [RC] ASDIRECTED Vaginal Exam [RC] ASDIRECTED Sodium Chloride 0.9% [Saline Flush] 10 ml FLUSH ASDIRECTED PRN Peripheral IV Insertion Adult [OM.PC] Routine 01/11/19 20:36 Notify Provider [RC] ASDIRECTED 01/11/19 20:45 Medication Administration Instruction [OM.PC] ASDIRECTED 01/11/19 Dinner Regular Diet [DIET] 01/12/19 04:01 miSOPROStol [Cytotec] 25 mcg PO Q4H PRN 01/12/19 08:15 Ampicillin 1 gm Sodium Chloride 0.9% [Normal Saline] 100 ml IV Q4H 01/12/19 09:45 Oxytocin/Lactated Ringers [Pitocin in LR 10 Units/1,000 ML] 10 unit in 1,000 ml IV TITRATE 01/12/19 17:24 Patient Status Manage Transfer [TRANSFER] Routine - Plan Plan:: I supervised the delivery of the patient with the medical student and performed the manual extraction of the placenta. I agree with the assessment and plan as per the note above. Fer Dey M.D. 5:30 PM 01/12/2019 HPI Initial Comments: [facility], [place], operated by [facility] LIVE L/D Delivery Note Patient Name: ANTONIA GAYTAN Date of : 89 Patient Status: Inpatient Attending Provider: Fer Dey Date: 01/12/19 16:45 Initialization Date: 01/12/19 16:45 <LunaCharlieMarcelo - Last Filed: 01/12/19 16:56> L & D Note - General Info Date of Service: 01/12/19 - Delivery Note Labor: Augmented by ARM, Augmented by Oxytocin Cervical Ripening Method: Misoprostil Delivery Outcome: Livebirth Infant Delivery Method: Spontaneous Vaginal Delivery-Single Delivery Mode: Spontaneous Presentation: Left Occiput Anterior (MAHESH) Nuchal Cord: Present, Reduced (after delivery) Anesthesia Type: Epidural Amniotic Fluid Description: Clear Episiotomy Type: None Laceration: 1st Degree, Perineal, Periurethral Suture type: Vicryl Suture size: 3-0 Placenta: Curettage, Manual Removal Cord: 3 Vessels Estimated Blood Loss: 500 Resuscitation Needed: No : Bulb Syringe, Stimulated, Warmed, [place] Used, Warmer Used Provider: Fer Dey Score 1 min: 8 Score 5 min: 9 Post Delivery Events: Retained Placenta Second Stage Interventions: Reports: Pushing Effectively, Pushing, Stirrups/Leg Supports Delivery Comments (Free Text/Narrative):: Stage I: Antonia Gaytan was admitted for medical induction of labor. She was having blurry vision, persistent elevated blood pressures above 140/90, and proteinuria. On admission her cervix was dilated to 1 cm. She was GBS positive. Treated with ampicillin, and received a total of 3 doses. She was administered cytotec for cervical ripening. She was started on Pitocin for augmentation of labor. She had artificial rupture membranes with clear fluid. She was given an epidural for anesthesia. She progressed to complete and pushing. Stage II: On 01/12/2019 she had a normal vaginal delivery of a live female at . Apgars of 8 & 9. Weight of 2540 g (5 lbs 9.6 oz). Length of 19.5 inches. There was a nuchal cord, which was reduced after delivery of the infant. was delivered in MAHESH position. The cord was doubly clamped and cut by father of the . was placed on mother's abdomen. Stage III: Avulsion of the umbilical cord during delivery of the placenta. The placenta was then manually extracted in multiple pieces. The uterine cavity was then curettaged in all quadrants with good cri noted, and no additional tissue removed. The uterus had good tone after removal of all portions of the retained placenta. Three vessel cord. She was given pitocin and fundal massage. She had a first-degree left perineal laceration that was repaired with 3-0 Vicryl. She also had a small 1st-degree ila-urethral laceration that was not bleeding, and was not repaired. Mom and baby were stable to recovery. EBL of 500 mL. - General Info Date of Service: 01/12/19 - Patient Data Vitals - Most Recent: Last Vital Signs Temp 97.9 F 01/11/19 15:57 Pulse 66 01/11/19 15:57 Resp 16 01/11/19 15:57 BP 149/83 H 01/11/19 15:57 Pulse Ox Weight - Most Recent: 102.512 kg I&O - Last 24 Hours: Intake & Output 01/12/19 01/12/19 01/12/19 06:59 14:59 22:59 Intake Total 240 Balance 240 Lab Results Last 24 Hours: Laboratory Results - last 24 hr 01/11/19 01/12/19 Range/Units 14:33 09:00 WBC 14.20 H (3.98-10.04) K/mm3 RBC 3.80 L (3.98-5.22) M/mm3 Hgb 10.9 L (11.2-15.7) gm/dl Hct 33.5 L (34.1-44.9) % MCV 88.2 (79.4-94.8) fl MCH 28.7 (25.6-32.2) pg MCHC 32.5 (32.2-35.5) g/dl RDW Std Deviation 45.5 (36.4-46.3) fL Plt Count 236 (182-369) K/mm3 MPV 11.1 (9.4-12.3) fl Neut % (Auto) 81.9 H (34.0-71.1) % Lymph % (Auto) 12.3 L (19.3-51.7) % Banks % (Auto) 5.0 (4.7-12.5) % Eos % (Auto) 0.4 L (0.7-5.8) Baso % (Auto) 0.2 (0.1-1.2) % Neut # (Auto) 11.63 H (1.56-6.13) K/mm3 Lymph # (Auto) 1.75 (1.18-3.74) K/mm3 Banks # (Auto) 0.71 H (0.24-0.36) K/mm3 Eos # (Auto) 0.05 (0.04-0.36) K/mm3 Baso # (Auto) 0.03 (0.01-0.08) K/mm3 RPR Non-reactive (NONREACTIVE) Med Orders - Current: Current Medications Acetaminophen (Tylenol) 650 mg PO Q6H PRN PRN Reason: Pain (Mild 1-3) and fever Ephedrine Sulfate (Ephedrine Sulfate) 5 mg IVPUSH ASDIRECTED PRN PRN Reason: Hypotension Fentanyl (Sublimaze) 100 mcg EPIDUR Q3H PRN PRN Reason: Pain Last Admin: 01/12/19 12:43 Dose: 100 mcg Fentanyl/Bupivacaine HCl (Fentanyl/Bupivacaine/Ns 2 Mcg-0.125% 250 Ml) 2 mcg EPIDUR CONTINUOUS PRN PRN Reason: Pain Last Admin: 01/12/19 12:43 Dose: 2 mcg Lactated Ringer's (Ringers, Lactated) 1,000 mls @ 100 mls/hr IV ASDIRECTED ALFREDITO Last Admin: 01/12/19 04:16 Dose: 100 mls/hr Oxytocin/Lactated Ringer's (Pitocin In Lr 10 Units/1,000 Ml) 10 unit in 1,000 mls @ 100 mls/hr IV .CONTINUOUS ALFREDITO Ampicillin Sodium 1 gm/ Sodium (Chloride) 100 mls @ 200 mls/hr IV Q4H ALFREDITO Last Admin: 01/12/19 12:10 Dose: 200 mls/hr Oxytocin/Lactated Ringer's (Pitocin In Lr 10 Units/1,000 Ml) 10 unit in 1,000 mls @ 12 mls/hr IV TITRATE ALFREDITO; Protocol Last Titration: 01/12/19 09:15 Dose: 6 munits/min, 36 mls/hr Misoprostol (Cytotec) 25 mcg PO Q4H PRN PRN Reason: cervical ripening Nalbuphine HCl (Nubain) 10 mg IVPUSH Q2H PRN PRN Reason: Pain Ondansetron HCl (Zofran) 4 mg IVPUSH ONETIME PRN PRN Reason: Nausea/Vomiting Sodium Chloride (Saline Flush) 10 ml FLUSH ASDIRECTED PRN PRN Reason: Keep Vein Open Sodium Chloride (Saline Flush) 10 ml FLUSH ASDIRECTED PRN PRN Reason: Keep Vein Open Discontinued Medications Ampicillin Sodium 2 gm/ Sodium (Chloride) 100 mls @ 200 mls/hr IV ONETIME ONE Stop: 01/12/19 04:29 Last Admin: 01/12/19 04:16 Dose: 200 mls/hr Misoprostol (Cytotec) 25 mcg PO Q4H PRN PRN Reason: cervical ripening Misoprostol (Cytotec) Confirm Administered Dose 25 mcg .ROUTE .STK-MED ONE Stop: 01/11/19 20:42 Last Admin: 01/12/19 03:14 Dose: 25 mcg Misoprostol (Cytotec) Confirm Administered Dose 25 mcg .ROUTE .STK-MED ONE Stop: 01/12/19 03:11 Misoprostol (Cytotec) 25 mcg PO Q4H PRN PRN Reason: cervical ripening - Problem List & Annotations (1) 37 weeks gestation of SNOMED Code(s): 73983254 Code(s): Z3A.37 - 37 WEEKS GESTATION OF Status: Acute Current Visit: Yes (2) Preeclampsia SNOMED Code(s): 179142909 Code(s): O14.90 - UNSPECIFIED PRE-ECLAMPSIA, UNSPECIFIED TRIMESTER Status: Acute Current Visit: Yes (3) Gastroesophageal reflux in SNOMED Code(s): 35731006239431118 Code(s): O99.619 - DISEASES OF THE DGSTV SYS COMP , UNSP TRIMESTER; K21.9 - GASTRO-ESOPHAGEAL REFLUX DISEASE WITHOUT ESOPHAGITIS Status: Acute Current Visit: Yes (4) Obesity SNOMED Code(s): 307762130, 381274315 Code(s): E66.9 - OBESITY, UNSPECIFIED Status: Acute Current Visit: Yes (5) GBS (group B Streptococcus carrier), +RV culture, currently SNOMED Code(s): 3786262904280, 562785150, 7260906449275 Code(s): O99.820 - STREPTOCOCCUS B CARRIER STATE COMPLICATING Status: Acute Current Visit: Yes (6) Vaginal delivery SNOMED Code(s): 605416929 Code(s): O80 - ENCOUNTER FOR FULL-TERM UNCOMPLICATED DELIVERY Status: Acute Current Visit: Yes (7) Retained placenta SNOMED Code(s): 127344716 Code(s): O73.0 - RETAINED PLACENTA WITHOUT HEMORRHAGE Status: Acute Current Visit: Yes (8) First degree laceration of perineum during delivery, SNOMED Code(s): 127198682 Code(s): O70.0 - FIRST DEGREE PERINEAL LACERATION DURING DELIVERY Status: Acute Current Visit: Yes - Problem List Review Problem List Initiated/Reviewed/Updated: Yes - Plan Plan:: Admit to inpatient following normal spontaneous vaginal delivery Continue Pitocin per unit protocol following delivery of placenta and lactated Ringer's until tolerating regular diet Regular diet Vitals per unit routine Ibuprofen and Tylenol for pain control Assist with breast-feeding as needed Continue to monitor lochia Monitor temperature for signs of endometritis Anticipate discharge home on day #2 <Fer Dey - Last Filed: 01/12/19 17:30> - Patient Data Vitals - Most Recent: Last Vital Signs Temp 36.6 C 01/11/19 15:57 Pulse 66 01/11/19 15:57 Resp 16 01/11/19 15:57 BP 149/83 H 01/11/19 15:57 Pulse Ox I&O - Last 24 Hours: Intake & Output 01/12/19 01/12/19 01/12/19 06:59 14:59 22:59 Intake Total 240 Balance 240 Lab Results Last 24 Hours: Laboratory Results - last 24 hr 01/11/19 01/12/19 Range/Units 14:33 09:00 WBC 14.20 H (3.98-10.04) K/mm3 RBC 3.80 L (3.98-5.22) M/mm3 Hgb 10.9 L (11.2-15.7) gm/dl Hct 33.5 L (34.1-44.9) % MCV 88.2 (79.4-94.8) fl MCH 28.7 (25.6-32.2) pg MCHC 32.5 (32.2-35.5) g/dl RDW Std Deviation 45.5 (36.4-46.3) fL Plt Count 236 (182-369) K/mm3 MPV 11.1 (9.4-12.3) fl Neut % (Auto) 81.9 H (34.0-71.1) % Lymph % (Auto) 12.3 L (19.3-51.7) % Banks % (Auto) 5.0 (4.7-12.5) % Eos % (Auto) 0.4 L (0.7-5.8) Baso % (Auto) 0.2 (0.1-1.2) % Neut # (Auto) 11.63 H (1.56-6.13) K/mm3 Lymph # (Auto) 1.75 (1.18-3.74) K/mm3 Banks # (Auto) 0.71 H (0.24-0.36) K/mm3 Eos # (Auto) 0.05 (0.04-0.36) K/mm3 Baso # (Auto) 0.03 (0.01-0.08) K/mm3 RPR Non-reactive (NONREACTIVE) Med Orders - Current: Current Medications Acetaminophen (Tylenol) 650 mg PO Q6H PRN PRN Reason: Pain (Mild 1-3) and fever Ephedrine Sulfate (Ephedrine Sulfate) 5 mg IVPUSH ASDIRECTED PRN PRN Reason: Hypotension Fentanyl (Sublimaze) 100 mcg EPIDUR Q3H PRN PRN Reason: Pain Last Admin: 01/12/19 12:43 Dose: 100 mcg Fentanyl/Bupivacaine HCl (Fentanyl/Bupivacaine/Ns 2 Mcg-0.125% 250 Ml) 2 mcg EPIDUR CONTINUOUS PRN PRN Reason: Pain Last Admin: 01/12/19 12:43 Dose: 2 mcg Lactated Ringer's (Ringers, Lactated) 1,000 mls @ 100 mls/hr IV ASDIRECTED ALFREDITO Last Admin: 01/12/19 04:16 Dose: 100 mls/hr Oxytocin/Lactated Ringer's (Pitocin In Lr 10 Units/1,000 Ml) 10 unit in 1,000 mls @ 100 mls/hr IV .CONTINUOUS ALFREDITO Ampicillin Sodium 1 gm/ Sodium (Chloride) 100 mls @ 200 mls/hr IV Q4H ALFREDITO Last Admin: 01/12/19 12:10 Dose: 200 mls/hr Oxytocin/Lactated Ringer's (Pitocin In Lr 10 Units/1,000 Ml) 10 unit in 1,000 mls @ 12 mls/hr IV TITRATE ALFREDITO; Protocol Last Titration: 01/12/19 09:15 Dose: 6 munits/min, 36 mls/hr Misoprostol (Cytotec) 25 mcg PO Q4H PRN PRN Reason: cervical ripening Nalbuphine HCl (Nubain) 10 mg IVPUSH Q2H PRN PRN Reason: Pain Ondansetron HCl (Zofran) 4 mg IVPUSH ONETIME PRN PRN Reason: Nausea/Vomiting Sodium Chloride (Saline Flush) 10 ml FLUSH ASDIRECTED PRN PRN Reason: Keep Vein Open Sodium Chloride (Saline Flush) 10 ml FLUSH ASDIRECTED PRN PRN Reason: Keep Vein Open Discontinued Medications Ampicillin Sodium 2 gm/ Sodium (Chloride) 100 mls @ 200 mls/hr IV ONETIME ONE Stop: 01/12/19 04:29 Last Admin: 01/12/19 04:16 Dose: 200 mls/hr Misoprostol (Cytotec) 25 mcg PO Q4H PRN PRN Reason: cervical ripening Misoprostol (Cytotec) Confirm Administered Dose 25 mcg .ROUTE .STK-MED ONE Stop: 01/11/19 20:42 Last Admin: 01/12/19 03:14 Dose: 25 mcg Misoprostol (Cytotec) Confirm Administered Dose 25 mcg .ROUTE .STK-MED ONE Stop: 01/12/19 03:11 Misoprostol (Cytotec) 25 mcg PO Q4H PRN PRN Reason: cervical ripening - My Orders Last 24 Hours: My Active Orders 01/11/19 20:30 Patient Status [ADT] Routine Activity as Tolerated [RC] PFP Communication Order [RC] ASDIRECTED Notify Provider [RC] PFP Notify Provider [RC] PRN Vital Signs [RC] PER UNIT ROUTINE Acetaminophen [Tylenol] 650 mg PO Q6H PRN Lactated Ringers [Ringers, Lactated] 1,000 ml IV ASDIRECTED Nalbuphine [Nubain] 10 mg IVPUSH Q2H PRN Oxytocin/Lactated Ringers [Pitocin in LR 10 Units/1,000 ML] 10 unit in 1,000 ml IV .CONTINUOUS Sodium Chloride 0.9% [Saline Flush] 10 ml FLUSH ASDIRECTED PRN Electronic Heart Tones Ext w TOCO [WOMSER] Routine Electronic Heart Tones Internal [WOMSER] Per Unit Routine Peripheral IV Insertion Adult [OM.PC] Routine 01/11/19 20:31 Heart Tones [RC] ASDIRECTED Peripheral IV Care [RC] . DIRECTED Pump Management, Intrathecal [RC] ASDIRECTED 01/11/19 20:32 Notify Provider Vital Signs [RC] PRN 01/11/19 20:35 Communication Order [RC] ASDIRECTED Communication Order [RC] ASDIRECTED Communication Order [RC] ASDIRECTED Notify Provider [RC] ASDIRECTED Vaginal Exam [RC] ASDIRECTED Sodium Chloride 0.9% [Saline Flush] 10 ml FLUSH ASDIRECTED PRN Peripheral IV Insertion Adult [OM.PC] Routine 01/11/19 20:36 Notify Provider [RC] ASDIRECTED 01/11/19 20:45 Medication Administration Instruction [OM.PC] ASDIRECTED 01/11/19 Dinner Regular Diet [DIET] 01/12/19 04:01 miSOPROStol [Cytotec] 25 mcg PO Q4H PRN 01/12/19 08:15 Ampicillin 1 gm Sodium Chloride 0.9% [Normal Saline] 100 ml IV Q4H 01/12/19 09:45 Oxytocin/Lactated Ringers [Pitocin in LR 10 Units/1,000 ML] 10 unit in 1,000 ml IV TITRATE 01/12/19 17:24 Patient Status Manage Transfer [TRANSFER] Routine - Plan Plan:: I supervised the delivery of the infant patient with the medical student and performed the manual extraction of the placenta. I agree with the assessment and plan as per the note above. Fer Dey M.D. 5:30 PM 01/12/2019 Brief History: [facility], [place], operated by [facility] . L/D Delivery Note. Patient Name: Arnulfo GAYTAN Record Number: [id number]. Date of : Patient Status: Inpatient. Attending Provider: Fer Deycount Number: [id number]. Date: 01/12/19 16:45Initialization Date: 01/12/19 16:45. <Marcelo Luna - Last Filed: 01/12/19 16:56>. L & D Note. - General Info. Date of Service: 10/10/19. - Delivery Note. Labor: Augmented by ARM, Augmented by Oxytocin. Cervical Ripening Method: Misoprostil. Delivery Outcome: Livebirth. Infant Delivery Method: Spontaneous Vaginal Delivery-Single. Infant Delivery Mode: Spontaneous. Presentation: Left Occiput Anterior (MAHESH). Nuchal Cord: Present, Reduced (after delivery). Anesthesia Type: Epidural. Amniotic Fluid Description: Clear. Episiotomy Type: None. Laceration: 1st Degree, Perineal, Periurethral. Suture type: Vicryl. Suture size: 3-0. Placenta: Curettage, Manual Removal. Cord: 3 Vessels. Estimated Blood Loss: 500. Resuscitation Needed: No. Bee: Bulb Syringe, Stimulated, Warmed, [place] Used, Warmer Used. Provider: Fer Dey. Score 1 min: 8. Score 5 min: 9. Post Delivery Events: Retained Placenta. Second Stage Interventions: Reports: Pushing Effectively, Pushing, Stirrups/Leg Supports. Delivery Comments (Free Text/Narrative):: Stage I: Antonia Gaytan was admitted for medical induction of labor. She was having blurry vision, persistent elevated blood pressures above 140/90, and proteinuria. On admission her cervix was dilated to 1 cm. She was GBS positive. Treated with ampicillin, and received a total of 3 doses. She was administered cytotec for cervical ripening. She was started on Pitocin for augmentation of labor. She had artificial rupture membranes with clear fluid. She was given an epidural for anesthesia. She progressed to complete and pushing. Stage II: On 01/12/2019 she had a normal vaginal delivery of a live female infant at . Apgars of 8 & 9. Weight of 2540 g (5 lbs 9.6 oz). Length of 19.5 inches. There was a nuchal cord , which was reduced after delivery of the infant. was delivered in MAHESH position. The cord was doubly clamped and cut by father of the . was placed on mother's abdomen. Stage III: Avulsion of the umbilical cord during delivery of the placenta. The placenta was then manually extracted in multiple pieces. The uterine cavity was then curettaged in all quadrants with good cri noted, and no additional tissue removed. The uterus had good tone after removal of all portions of the retained placenta. Three vessel cord. She was given pitocin and fundal massage. She had a first-degree left perineal laceration that was repaired with 3-0 Vicryl. She also had a small 1st-degree ila-urethral laceration that was not bleeding, and was not repaired. Mom and baby were stable to recovery. EBL of 500 mL. - General Info. Date of Service: 01/12/19. - Patient Data. Vitals - Most Recent: Last Vital Signs. Temp 97.9 F 01/11/19 15:57. Pulse 66 01/11/19 15:57. Resp 16 01/11/19 15:57. BP 149/ 83 H 01/11/19 15:57. Pulse Ox. Weight - Most Recent: 102.512 kg. I&O - Last 24 Hours: Intake & Output. 01/12/1910/01/1910. 06:5914:5922:59. Intake [id number]. [id number]. Lab Results Last 24 Hours: Laboratory Results - last 24 hr. 01/11/1910Range/Units. 14:3309:00. WBC 14.20 H (3.98-10.04 ) K/mm3. RBC 3.80 L (3.98-5.22) M/mm3. Hgb 10.9 L (11.2-15.7) gm/dl. Hct 33.5 L (34.1-44.9) %. MCV 88.2 (79.4-94.8) fl. MCH 28.7 (25.6-32.2) pg. MCHC 32.5 (32.2-35.5) g/dl. RDW Std Deviation 45.5 (36.4-46.3) fL. Plt Count 236 (182-369) K/mm3. MPV 11.1 (9.4-12.3) fl. Neut % (Auto) 81.9 H ( 34.0-71.1) %. Lymph % (Auto) 12.3 L (19.3-51.7) %. Banks % (Auto) 5.0 (4.7- 12.5) %. Eos % (Auto) 0.4 L (0.7-5.8). Baso % (Auto) 0.2 (0.1-1.2) %. Neut # (Auto) 11.63 H (1.56-6.13) K/mm3. Lymph # (Auto) 1.75 (1.18-3.74) K/mm3. Banks # (Auto) 0.71 H (0.24-0.36) K/mm3. Eos # (Auto) 0.05 (0.04-0.36) K/mm3. Baso # (Auto) 0.03 (0.01-0.08) K/mm3. RPR Non-reactive (NONREACTIVE). Med Orders - Current: Current Medications. Acetaminophen (Tylenol) 650 mg PO Q6H PRN. PRN Reason: Pain (Mild 1-3) and fever. Ephedrine Sulfate (Ephedrine Sulfate) 5 mg IVPUSH ASDIRECTED PRN. PRN Reason: Hypotension. Fentanyl ( Sublimaze) 100 mcg EPIDUR Q3H PRN. PRN Reason: Pain. Last Admin: 01/12/19 12: 43 Dose: 100 mcg. Fentanyl/Bupivacaine HCl (Fentanyl/Bupivacaine/Ns 2 Mcg- 0.125% 250 Ml) 2 mcg EPIDUR CONTINUOUS PRN. PRN Reason: Pain. Last Admin: 01/21 12:43 Dose: 2 mcg. Lactated Ringer's (Ringers, Lactated) 1,000 mls @ 100 mls/hr IV ASDIRECTED ALFREDITO. Last Admin: 01/12/19 04:16 Dose: 100 mls/hr. Oxytocin/Lactated Ringer's (Pitocin In Lr 10 Units/1,000 Ml) 10 unit in 1,000 mls @ 100 mls/hr IV .CONTINUOUS ALFREDITO. Ampicillin Sodium 1 gm/ Sodium (Chloride) 100 mls @ 200 mls/hr IV Q4H ALFREDITO. Last Admin: 01/12/19 12:10 Dose: 200 mls/ hr. Oxytocin/Lactated Ringer's (Pitocin In Lr 10 Units/1,000 Ml) 10 unit in 1, 000 mls @ 12 mls/hr IV TITRATE ALFREDITO; Protocol. Last Titration: 01/12/19 09:15 Dose: 6 munits/min, 36 mls/hr. Misoprostol (Cytotec) 25 mcg PO Q4H PRN. PRN Reason: cervical ripening. Nalbuphine HCl (Nubain) 10 mg IVPUSH Q2H PRN. PRN Reason: Pain. Ondansetron HCl (Zofran) 4 mg IVPUSH ONETIME PRN. PRN Reason: Nausea/Vomiting. Sodium Chloride (Saline Flush) 10 ml FLUSH ASDIRECTED PRN. PRN Reason: Keep Vein Open. Sodium Chloride (Saline Flush) 10 ml FLUSH ASDIRECTED PRN. PRN Reason: Keep Vein Open. Discontinued Medications. Ampicillin Sodium 2 gm/ Sodium (Chloride) 100 mls @ 200 mls/hr IV ONETIME ONE. Stop: 01/12/19 04:29. Last Admin: 01/12/19 04:16 Dose: 200 mls/hr. Misoprostol (Cytotec) 25 mcg PO Q4H PRN. PRN Reason: cervical ripening. Misoprostol (Cytotec) Confirm Administered Dose 25 mcg .ROUTE .STK-MED ONE. Stop: 01/11/19 20:42. Last Admin: 01/12/19 03:14 Dose: 25 mcg. Misoprostol ( Cytotec) Confirm Administered Dose 25 mcg .ROUTE .STK-MED ONE. Stop: 01/12/19 03:11. Misoprostol (Cytotec) 25 mcg PO Q4H PRN. PRN Reason: cervical ripening. - Problem List & Annotations. (1) 37 weeks gestation of . SNOMED Code(s): 12788974. Code(s): Z3A.37 - 37 WEEKS GESTATION OF Status: Acute Current Visit: Yes. (2) Preeclampsia. SNOMED Code(s): 783762766. Code(s): O14.90 - UNSPECIFIED PRE-ECLAMPSIA, UNSPECIFIED TRIMESTER Status: Acute Current Visit: Yes. (3) Gastroesophageal reflux in . SNOMED Code(s): 46826242853179200. Code(s): O99.619 - DISEASES OF THE DGSTV SYS COMP , UNSP TRIMESTER; K21.9 - GASTRO-ESOPHAGEAL REFLUX DISEASE WITHOUT ESOPHAGITIS Status: Acute Current Visit: Yes. (4) Obesity. SNOMED Code(s): 751903472, 220318361. Code(s): E66.9 - OBESITY, UNSPECIFIED Status: Acute Current Visit: Yes. (5) GBS (group B Streptococcus carrier), +RV culture, currently . SNOMED Code(s): 8027065597316, 148024219, 0333381802919. Code(s): O99.820 - STREPTOCOCCUS B CARRIER STATE COMPLICATING Status: Acute Current Visit: Yes. (6) Vaginal delivery. SNOMED Code(s): 991280026. Code(s): O80 - ENCOUNTER FOR FULL-TERM UNCOMPLICATED DELIVERY Status: Acute Current Visit: Yes. (7) Retained placenta. SNOMED Code(s): 330383845. Code(s): O73.0 - RETAINED PLACENTA WITHOUT HEMORRHAGE Status: Acute Current Visit: Yes. (8) First degree laceration of perineum during delivery, . SNOMED Code(s): 521844808. Code(s): O70.0 - FIRST DEGREE PERINEAL LACERATION DURING DELIVERY Status: Acute Current Visit : Yes. - Problem List Review. Problem List Initiated/Reviewed/Updated: Yes. - Plan. Plan:: Admit to inpatient following normal spontaneous vaginal delivery. Continue Pitocin per unit protocol following delivery of placenta and lactated Ringer's until tolerating regular diet. Regular diet. Vitals per unit routine. Ibuprofen and Tylenol for pain control. Assist with breast- feeding as needed. Continue to monitor lochia. Monitor temperature for signs of endometritis. Anticipate discharge home on day #2. <Fer Dey - Last Filed: 01/12/19 17:30>. - Patient Data. Vitals - Most Recent: Last Vital Signs. Temp 36.6 C 01/11/19 15:57. Pulse 66 01/11/19 15:57. Resp 16 01/11/19 15:57. BP 149/83 H 01/11/19 15:57. Pulse Ox. I&O - Last 24 Hours: Intake & Output. 01/12/1910/01/1910. 06:5914:5922:59. Intake [id number]. [id number]. Lab Results Last 24 Hours: Laboratory Results - last 24 hr. 12/1909/01/21Range/Units. 14:3309:00. WBC 14.20 H (3.98-10.04) K/mm3. RBC 3.80 L (3.98-5.22) M/mm3. Hgb 10.9 L (11.2-15.7) gm/dl. Hct 33.5 L (34.1- 44.9) %. MCV 88.2 (79.4-94.8) fl. MCH 28.7 (25.6-32.2) pg. MCHC 32.5 (32.2 -35.5) g/dl. RDW Std Deviation 45.5 (36.4-46.3) fL. Plt Count 236 (182-369) K/mm3. MPV 11.1 (9.4-12.3) fl. Neut % (Auto) 81.9 H (34.0-71.1) %. Lymph % (Auto) 12.3 L (19.3-51.7) %. Banks % (Auto) 5.0 (4.7-12.5) %. Eos % (Auto) 0.4 L (0.7-5.8). Baso % (Auto) 0.2 (0.1-1.2) %. Neut # (Auto) 11.63 H (1.56- 6.13) K/mm3. Lymph # (Auto) 1.75 (1.18-3.74) K/mm3. [place] # (Auto) 0.71 H ( 0.24-0.36) K/mm3. Eos # (Auto) 0.05 (0.04-0.36) K/mm3. Baso # (Auto) 0.03 ( 0.01-0.08) K/mm3. RPR Non-reactive (NONREACTIVE). Med Orders - Current: Current Medications. Acetaminophen (Tylenol) 650 mg PO Q6H PRN. PRN Reason: Pain (Mild 1-3) and fever. Ephedrine Sulfate (Ephedrine Sulfate) 5 mg IVPUSH ASDIRECTED PRN. PRN Reason: Hypotension. Fentanyl (Sublimaze) 100 mcg EPIDUR Q3H PRN. PRN Reason: Pain. Last Admin: 01/12/19 12:43 Dose: 100 mcg. Fentanyl/Bupivacaine HCl (Fentanyl/Bupivacaine/Ns 2 Mcg-0.125% 250 Ml) 2 mcg EPIDUR CONTINUOUS PRN. PRN Reason: Pain. Last Admin: 01/12/19 12:43 Dose: 2 mcg. Lactated Ringer's (Ringers, Lactated) 1,000 mls @ 100 mls/hr IV ASDIRECTED ALFREDITO. Last Admin: 01/12/19 04:16 Dose: 100 mls/hr. Oxytocin/ Lactated Ringer's (Pitocin In Lr 10 Units/1,000 Ml) 10 unit in 1,000 mls @ 100 mls/hr IV .CONTINUOUS ALFREDITO. Ampicillin Sodium 1 gm/ Sodium (Chloride) 100 mls @ 200 mls/hr IV Q4H ALFREDITO. Last Admin: 01/12/19 12:10 Dose: 200 mls/hr. Oxytocin/Lactated Ringer's (Pitocin In Lr 10 Units/1,000 Ml) 10 unit in 1,000 mls @ 12 mls/hr IV TITRATE ALFREDITO; Protocol. Last Titration: 01/12/19 09:15 Dose: 6 munits/min, 36 mls/hr. Misoprostol (Cytotec) 25 mcg PO Q4H PRN. PRN Reason: cervical ripening. Nalbuphine HCl (Nubain) 10 mg IVPUSH Q2H PRN. PRN Reason: Pain. Ondansetron HCl (Zofran) 4 mg IVPUSH ONETIME PRN. PRN Reason: Nausea/Vomiting. Sodium Chloride (Saline Flush) 10 ml FLUSH ASDIRECTED PRN. PRN Reason: Keep Vein Open. Sodium Chloride (Saline Flush) 10 ml FLUSH ASDIRECTED PRN. PRN Reason: Keep Vein Open. Discontinued Medications. Ampicillin Sodium 2 gm/ Sodium (Chloride) 100 mls @ 200 mls/hr IV ONETIME ONE. Stop: 01/12/19 04:29. Last Admin: 01/12/19 04:16 Dose: 200 mls/hr. Misoprostol (Cytotec) 25 mcg PO Q4H PRN. PRN Reason: cervical ripening. Misoprostol (Cytotec) Confirm Administered Dose 25 mcg .ROUTE .STK-MED ONE. Stop: 01/11/19 20:42. Last Admin: 01/12/19 03:14 Dose: 25 mcg. Misoprostol ( Cytotec) Confirm Administered Dose 25 mcg .ROUTE .STK-MED ONE. Stop: 01/12/19 03:11. Misoprostol (Cytotec) 25 mcg PO Q4H PRN. PRN Reason: cervical ripening. - My Orders. Last 24 Hours: My Active Orders. 01/11/19 20:30. Patient Status [ADT] Routine. Activity as Tolerated [RC] PFP. Communication Order [RC] ASDIRECTED. Notify Provider [RC] PFP. Notify Provider [RC] PRN. Vital Signs [RC] PER UNIT ROUTINE. Acetaminophen [Tylenol] 650 mg PO Q6H PRN. Lactated Ringers [Ringers, Lactated] 1,000 ml IV ASDIRECTED. Nalbuphine [ Nubain] 10 mg IVPUSH Q2H PRN. Oxytocin/Lactated Ringers [Pitocin in LR 10 Units/1,000 ML] 10 unit in 1,000 ml IV .CONTINUOUS. Sodium Chloride 0.9% [ Saline Flush] 10 ml FLUSH ASDIRECTED PRN. Electronic Heart Tones Ext w TOCO [WOMSER] Routine. Electronic Heart Tones Internal [WOMSER] Per Unit Routine. Peripheral IV Insertion Adult [OM.PC] Routine. 01/11/19 20:31. Heart Tones [RC] ASDIRECTED. Peripheral IV Care [RC] . DIRECTED. Pump Management, Intrathecal [RC] ASDIRECTED. 01/11/19 20:32. Notify Provider Vital Signs [RC] PRN. 01/11/19 20:35. Communication Order [RC] ASDIRECTED. Communication Order [RC] ASDIRECTED. Communication Order [RC] ASDIRECTED. Notify Provider [RC] ASDIRECTED. Vaginal Exam [RC] ASDIRECTED. Sodium Chloride 0.9% [Saline Flush] 10 ml FLUSH ASDIRECTED PRN. Peripheral IV Insertion Adult [OM.PC] Routine. 01/11/19 20:36. Notify Provider [RC] ASDIRECTED. 01/11/19 20:45. Medication Administration Instruction [OM.PC] ASDIRECTED. 01/11/19 Dinner. Regular Diet [DIET]. 01/12/19 04:01. miSOPROStol [Cytotec] 25 mcg PO Q4H PRN. 01/12/19 08:15. Ampicillin 1 gm Sodium Chloride 0.9% [Normal Saline] 100 ml IV Q4H. 01/12/19 09:45. Oxytocin/ Lactated Ringers [Pitocin in LR 10 Units/1,000 ML] 10 unit in 1,000 ml IV TITRATE. 01/12/19 17:24. Patient Status Manage Transfer [TRANSFER] Routine. - Plan. Plan:: I supervised the delivery of the infant patient with the medical student and performed the manual extraction of the placenta. I agree with the assessment and plan as per the note above. Fer Dey M.D. 5:30 PM. 01/12/2019 Diagnosis: Stroke: No - Discharge Data Discharge Date: 01/14/19 Discharge Disposition: Home, Self-Care 01 Condition: Good - Referral to Home Health Primary Care Physician: Fer Dey MD - Discharge Diagnosis/Problem(s) (1) 37 weeks gestation of SNOMED Code(s): 80237555 ICD Code: Z3A.37 - 37 WEEKS GESTATION OF Status: Acute Current Visit: Yes (2) First degree laceration of perineum during delivery, SNOMED Code(s): 525408049 ICD Code: O70.0 - FIRST DEGREE PERINEAL LACERATION DURING DELIVERY Status: Acute Current Visit: Yes (3) GBS (group B Streptococcus carrier), +RV culture, currently SNOMED Code(s): 7306708239136, 873054076, 6455088000059 ICD Code: O99.820 - STREPTOCOCCUS B CARRIER STATE COMPLICATING Status: Acute Current Visit: Yes (4) Gastroesophageal reflux in SNOMED Code(s): 66228805917740961 ICD Code: O99.619 - DISEASES OF THE DGSTV SYS COMP , UNSP TRIMESTER ; K21.9 - GASTRO-ESOPHAGEAL REFLUX DISEASE WITHOUT ESOPHAGITIS Status: Acute Current Visit: Yes (5) Obesity SNOMED Code(s): 247595511, 416284786 ICD Code: E66.9 - OBESITY, UNSPECIFIED Status: Acute Current Visit: Yes Qualifiers: Obesity type: due to excess calories Serious obesity comorbidity presence: without serious comorbidity Body mass index: BMI 36.0-36.9 (6) Preeclampsia SNOMED Code(s): 369757257 ICD Code: O14.90 - UNSPECIFIED PRE-ECLAMPSIA, UNSPECIFIED TRIMESTER Status : Acute Current Visit: Yes Qualifiers: Trimester: third trimester Qualified Code(s): O14.93 - Unspecified pre- eclampsia, third trimester (7) Retained placenta SNOMED Code(s): 916023388 ICD Code: O73.0 - RETAINED PLACENTA WITHOUT HEMORRHAGE Status: Acute Current Visit: Yes Qualifiers: Retained placenta detail: complete placenta Qualified Code(s): O73.0 - Retained placenta without hemorrhage (8) Vaginal delivery SNOMED Code(s): 188654328 ICD Code: O80 - ENCOUNTER FOR FULL-TERM UNCOMPLICATED DELIVERY Status: Acute Current Visit: Yes - Patient Summary/Data Complications: None after delivery. Consults: None Hospital Course: Uneventful - Patient Instructions Diet: Usual Diet as Tolerated Driving: Do Not Drive Showering/Bathing: May Shower (M's 48 hours) Notify Provider of: Fever, Increased Pain, Swelling and Redness, Drainage, Nausea and/or Vomiting - Discharge Plan *PRESCRIPTION DRUG MONITORING PROGRAM REVIEWED*: Not Applicable *COPY OF PRESCRIPTION DRUG MONITORING REPORT IN PATIENT SOREN: Not Applicable Home Medications: Home Meds PNV95/Ferrous Fumarate/FA [ Tablet] 1 each PO DAILY 11/21/18 [History] Acetaminophen [Tylenol] 650 mg PO Q6H PRN tablet 01/14/19 [Rx] Docusate Sodium [Colace] 100 mg PO BID PRN cap 01/14/19 [Rx] Ibuprofen [Motrin] 600 mg PO Q6H PRN tablet 01/14/19 [Rx] Witch Susan [Tucks] 1 pad TOP ASDIRECTED PRN pad 01/14/19 [Rx] Referrals: Fer Dey MD [Primary Care Provider] - (On Wednesday to make appointment to see Dr. Dey in 2 weeks) - Discharge Summary/Plan Comment DC Time >30 min.: No - Patient Data Vitals - Most Recent: Last Vital Signs Temp 97.5 F 01/14/19 02:18 Pulse 65 01/14/19 02:18 Resp 16 01/14/19 02:18 BP 112/86 01/14/19 02:18 Pulse Ox 97 01/14/19 02:18 Weight - Most Recent: 226 lb I&O - Last 24 hours: Intake & Output 01/13/19 01/14/19 01/14/19 22:59 06:59 14:59 Intake Total 320 Balance 320 Med Orders - Current: Current Medications Acetaminophen (Tylenol) 650 mg PO Q6H PRN PRN Reason: mild pain or fever Benzocaine/Menthol (Dermoplast Pain Relief [place]) 0 gm TOP ASDIRECTED PRN PRN Reason: Perineal Comfort Measure Last Admin: 01/12/19 20:31 Dose: 1 applic Docusate Sodium (Colace) 100 mg PO BID PRN PRN Reason: Constipation Last Admin: 01/13/19 23:22 Dose: 100 mg Ferrous Sulfate (Ferrous Sulfate) 325 mg PO WITHBREAKFAST ALFREDITO Last Admin: 01/13/19 11:49 Dose: 325 mg Hydrocortisone Acetate (Anucort-Hc) 25 mg RECTAL BID PRN PRN Reason: Hemorrhoid pain Oxytocin/Lactated Ringer's (Pitocin In Lr 10 Units/1,000 Ml) 10 unit in 1,000 mls @ 100 mls/hr IV TITRATE ALFREDITO; Protocol Ibuprofen (Motrin) 600 mg PO Q6H PRN PRN Reason: Mild pain or fever Last Admin: 01/13/19 23:22 Dose: 600 mg Magnesium Hydroxide (Milk Of Magnesia) 30 ml PO BEDTIME PRN PRN Reason: Constipation Prenat Multivit/[place]/Iron/Folic Ac ( Plus Iron) 1 each PO DAILY ALFREDITO Last Admin: 01/13/19 11:49 Dose: 1 each Witch Susan (Tucks) 1 pad TOP ASDIRECTED PRN PRN Reason: Perineal Comfort Measure Last Admin: 01/12/19 20:32 Dose: 1 applic Discontinued Medications Acetaminophen (Tylenol) 650 mg PO Q6H PRN PRN Reason: Pain (Mild 1-3) and fever Bupivacaine HCl (Sensorcaine-Mpf 0.25%) 10 ml .ROUTE .STK-MED ONE Stop: 01/12/19 00:01 Ephedrine Sulfate (Ephedrine Sulfate) 5 mg IVPUSH ASDIRECTED PRN PRN Reason: Hypotension Fentanyl (Sublimaze) 100 mcg EPIDUR Q3H PRN PRN Reason: Pain Last Admin: 01/12/19 12:43 Dose: 100 mcg Fentanyl/Bupivacaine HCl (Fentanyl/Bupivacaine/Ns 2 Mcg-0.125% 250 Ml) 2 mcg EPIDUR CONTINUOUS PRN PRN Reason: Pain Last Admin: 01/12/19 12:43 Dose: 2 mcg Lactated Ringer's (Ringers, Lactated) 1,000 mls @ 100 mls/hr IV ASDIRECTED ALFREDITO Last Admin: 01/12/19 04:16 Dose: 100 mls/hr Oxytocin/Lactated Ringer's (Pitocin In Lr 10 Units/1,000 Ml) 10 unit in 1,000 mls @ 100 mls/hr IV .CONTINUOUS ALFREDITO Ampicillin Sodium 2 gm/ Sodium (Chloride) 100 mls @ 200 mls/hr IV ONETIME ONE Stop: 01/12/19 04:29 Last Admin: 01/12/19 04:16 Dose: 200 mls/hr Ampicillin Sodium 1 gm/ Sodium (Chloride) 100 mls @ 200 mls/hr IV Q4H ALFREDITO Last Admin: 01/12/19 12:10 Dose: 200 mls/hr Oxytocin/Lactated Ringer's (Pitocin In Lr 10 Units/1,000 Ml) 10 unit in 1,000 mls @ 12 mls/hr IV TITRATE ALFREDITO; Protocol Last Titration: 01/12/19 09:15 Dose: 6 munits/min, 36 mls/hr Influenza Virus Vaccine (Fluzone Quad Syringe) 60 mcg IM .ONCE ONE Stop: 01/13/19 22:27 Last Admin: 01/13/19 23:23 Dose: 60 mcg Misoprostol (Cytotec) 25 mcg PO Q4H PRN PRN Reason: cervical ripening Misoprostol (Cytotec) Confirm Administered Dose 25 mcg .ROUTE .STK-MED ONE Stop: 01/11/19 20:42 Last Admin: 01/12/19 03:14 Dose: 25 mcg Misoprostol (Cytotec) Confirm Administered Dose 25 mcg .ROUTE .STK-MED ONE Stop: 01/12/19 03:11 Misoprostol (Cytotec) 25 mcg PO Q4H PRN PRN Reason: cervical ripening Misoprostol (Cytotec) 25 mcg PO Q4H PRN PRN Reason: cervical ripening Nalbuphine HCl (Nubain) 10 mg IVPUSH Q2H PRN PRN Reason: Pain Ondansetron HCl (Zofran) 4 mg IVPUSH ONETIME PRN PRN Reason: Nausea/Vomiting Sodium Chloride (Saline Flush) 10 ml FLUSH ASDIRECTED PRN PRN Reason: Keep Vein Open Sodium Chloride (Saline Flush) 10 ml FLUSH ASDIRECTED PRN PRN Reason: Keep Vein Open
[2019-01-14] MEDS: Ferrous Sulfate 325 MG Tab PO SCH (13:53)
[2019-01-14] MEDS: Prenatal Multivitamin with Calcium/Folic Acid/Iron Tab PO SCH (13:54)
== END 2019-01-14 16:30 | disposition home or self-care (01) | DRG 807 ==
LOC: JD.OB 15:18 → JD.OBCHECK 15:18 → JD.OB 20:30 → JD.MS 01-12 13:11 → JD.OB 01-12 13:18 → OBSVTOIN 01-12 15:50 → JD.OB 01-12 15:51
PROVIDERS: ADMIT Obstetrics & Gynecology; ATTEND Obstetrics & Gynecology
PROC: 10E0XZZ Delivery of Products of Conception, External Approach (ICD-10-PCS; principal; 2019-01-12)
PROC: 10907ZC Drainage of Amniotic Fluid, Therapeutic from Products of Conception, Via Natural or Artificial Opening (ICD-10-PCS; 2019-01-12)
PROC: 3E0P7VZ Introduction of Hormone into Female Reproductive, Via Natural or Artificial Opening (ICD-10-PCS; 2019-01-12)
PROC: 3E0R3BZ Introduction of Anesthetic Agent into Spinal Canal, Percutaneous Approach (ICD-10-PCS; 2019-01-12)
PROC: 0U7C7ZZ Dilation of Cervix, Via Natural or Artificial Opening (ICD-10-PCS; 2019-01-12)
PROC: 3E02340 Introduction of Influenza Vaccine into Muscle, Percutaneous Approach (ICD-10-PCS; 2019-01-13)
DX: O14.94 Unspecified pre-eclampsia, complicating childbirth (principal); Z37.0 Single live birth; O69.81X0 Labor and delivery complicated by cord around neck, without compression, not applicable or unspecified; O99.824 Streptococcus B carrier state complicating childbirth; O73.0 Retained placenta without hemorrhage; O70.0 First degree perineal laceration during delivery; O99.62 Diseases of the digestive system complicating childbirth; K21.9 Gastro-esophageal reflux disease without esophagitis; O99.214 Obesity complicating childbirth; E66.09 Other obesity due to excess calories; Z23 Encounter for immunization; Z3A.37 37 weeks gestation of pregnancy
CPT/HCPCS: 01967; 36415; 51701; 59025; 59409; 80053; 85025; 86592; 90686; A9270-GY; G0008; J0290; J2590; J3010; J3490; J7030; J7120

== ENCOUNTER 2019-03-07 21:44 | Emergency (ER) | payer OTHER ==
--- NOTE | 2019-03-07 22:21 | EDM.PDOC ---
ED HPI GENERAL MEDICAL PROBLEM - General Chief Complaint: Upper Extremity Injury/Pain Stated Complaint: pain in shoulder Time Seen by Provider: 03/07/19 22:02 Source of Information: Reports: Patient, RN Notes Reviewed - History of Present Illness INITIAL COMMENTS - FREE TEXT/NARRATIVE: 28 year old female with R shoulder pain that started 3 days ago, worse yesterday and especially this evening a few hours ago, now somewhat better. It does hurt to take a very deep breath. Was having L pelvic pain that her OB provider thought was likely a cyst a couple of days ago but that is much better today. Has not been coughing. No fever, chills, leg pain or swelling. She did deliver a baby 1 day short of 2 months ago. No abd pain, nausea, vomiting or unusual dizziness. Right Shoulder Pain Score (Numeric/FACES): 4 - Related Data Allergies Allergy/AdvReac Type Severity Reaction Status Date / Time seasonal Allergy Sneezing Uncoded 03/07/19 21:58 Home Meds: Home Meds Acetaminophen [Tylenol] 650 mg PO Q6H PRN tablet 01/14/19 [Rx] Ibuprofen [Motrin] 600 mg PO Q6H PRN tablet 01/14/19 [Rx] Past Medical History HEENT History: Reports: Allergic Rhinitis Social & Family History - Family History Respiratory: Reports: COPD GI: Reports: Hepatitis Endocrine/Metabolic: Reports: Diabetes, Type I, Hypothyroidism Dermatologic: Reports: Other (See Below) - Tobacco Use Smoking Status *Q: Never Smoker - Caffeine Use Caffeine Use: Reports: Coffee - Sexual History Sexual History: Reports: Sexually Active - Living Situation & Occupation Living situation: Reports: with Significant Other Occupation: Employed Review of Systems - Review of Systems Review Of Systems: See Below Constitutional: Denies: Chills, Fever Mouth/Throat: Reports: No Symptoms Respiratory: Reports: Pleuritic Chest Pain (only with a very deep breath). Denies: Shortness of Breath, Wheezing, Cough Cardiovascular: Reports: Chest Pain (mild discomfort R lower chest wall with deep breathing) GI/Abdominal: Reports: Abdominal Pain (she had some L pelvic pain 2 days ago but that is gone) Musculoskeletal: Reports: Shoulder Pain. Denies: Arm Pain, Leg Pain Skin: Denies: Rash, Erythema Neurological: Denies: Numbness, Tingling ED EXAM, GENERAL - Physical Exam Exam: See Below General Appearance: Alert, No Apparent Distress Throat/Mouth: Normal Inspection Head: Atraumatic. No: Facial Swelling Neck: Supple, Full Range of Motion Respiratory/Chest: No Respiratory Distress, Lungs Clear, Normal Breath Sounds, No Accessory Muscle Use, Chest Non-Tender. No: Rhonchi, Wheezing Cardiovascular: Regular Rate, Rhythm GI/Abdominal: Soft, Non-Tender. No: Guarding Extremities: Normal Inspection, No Pedal Edema, Other (calves nontender bilat). No: Leg Pain, Increased Warmth, Redness Neurological: Alert, Oriented, No Motor/Sensory Deficits Skin Exam: Warm, Dry, Normal Color Course - Vital Signs Last Recorded V/S: Last Vital Signs Temp 98.5 F 03/07/19 21:54 Pulse 84 03/07/19 21:54 Resp 20 03/07/19 21:54 BP 127/89 03/07/19 21:54 Pulse Ox 98 03/07/19 21:54 - Orders/Labs/Meds Orders: Active Orders 24 hr Category Date Time Status Chest 1V Frontal [CR] Stat Exams 03/07/19 22:13 Taken - Re-Assessments/Exams Free Text/Narrative Re-Assessment/Exam: 03/07/19 23:07 CXR was normal, cardiopulmonary exam is normal. Sats have been running 98 to 100 % and most of the time 100 %. No resp. distress. Shoulder is nontender, no unusual swelling. Slight pain with motion only. Discharge instr. as documented. Departure - Departure Time of Disposition: 22:38 Disposition: Home, Self-Care 01 Condition: Fair Clinical Impression: Pleurisy Shoulder pain Qualifiers: Chronicity: acute Laterality: right Qualified Code(s): M25.511 - Pain in right shoulder - Discharge Information Instructions: Shoulder Pain, Pleurisy Referrals: Fer Dey MD [Primary Care Provider] - Forms: ED Department Discharge Additional Instructions: The etiology of your R shoulder and rib pain is not totally clear at this time but more compatable with pleurisy than anything else. You chest X ray is normal. You oxygenation and other vital signs are all completely normal. Advil or ibuprofen 600 mg 3times daily. You may take tylenol in between doses for extra pain relief as needed. Follow up clinic if not better within 2 days as expected. Return to ED as discussed if symptoms worsening in any way. - My Orders Last 24 Hours: My Active Orders 03/07/19 22:13 Chest 1V Frontal [CR] Stat - Assessment/Plan Last 24 Hours: My Active Orders 03/07/19 22:13 Chest 1V Frontal [CR] Stat
--- NOTE | 2019-03-08 09:37 | CR ---
Chest: Frontal view of the chest was obtained. Comparison: No prior chest imaging is available. Heart size and mediastinum are normal. Lungs are clear. Bony structures are grossly intact. Impression: 1. Nothing acute is appreciated on frontal chest x-ray. Diagnostic code #1 This report was dictated in Mountain Standard Time
== END 2019-03-07 22:56 | disposition home or self-care (01) ==
LOC: JD.ED 21:44
DX: M25.511 Pain in right shoulder (principal); R09.1 Pleurisy; Z91.048 Other nonmedicinal substance allergy status
CPT/HCPCS: 71045; 71045-26; 99282; 99283-25

== ENCOUNTER 2021-01-21 19:36 | Emergency (ER) | payer MEDICAID, OTHER ==
--- NOTE | 2021-01-21 20:02 | EDM.PDOC ---
ED [facility] GENERAL MEDICAL PROBLEM - General Chief Complaint: Bite:Animal, Insect Stated Complaint: DOG BITE RT ARM Time Seen by Provider: 01/21/21 19:45 Source of Information: Reports: Patient History Limitations: Reports: No Limitations - History of Present Illness INITIAL COMMENTS - FREE TEXT/NARRATIVE: Patient is 30-year-old female presenting to the emergency room with a chief complaint of right forearm injury from a dog bite. Patient had her arm bitten by another family's dog while trying to break up a dog fight. She was only bit in the right forearm. The patient reports no other injuries. Has moderate amount of pain. Has some associated swelling. According to patient, the dog's owners stated the dog is up-to-date on all vaccinations. Right Arm Pain Score (Numeric/FACES): 10 - Related Data Allergies Allergy/AdvReac Type Severity Reaction Status Date / Time seasonal Allergy Sneezing Uncoded 01/21/21 19:49 Home Meds: Home Meds Acetaminophen [Tylenol] 650 mg PO Q6H PRN tablet 01/14/19 [Rx] Ibuprofen [Motrin] 600 mg PO Q6H PRN tablet 01/14/19 [Rx] Levofloxacin 750 mg PO DAILY 6 Days #6 tablet 01/21/21 [Rx] metroNIDAZOLE [Flagyl] 500 mg PO Q8H #20 tab 01/21/21 [Rx] Past Medical History HEENT History: Reports: Allergic Rhinitis Social & Family History - Family History Respiratory: Reports: COPD GI: Reports: Hepatitis Endocrine/Metabolic: Reports: Diabetes, Type I, Hypothyroidism Dermatologic: Reports: Other (See Below) - Tobacco Use Tobacco Use Status *Q: Never Tobacco User - Caffeine Use Caffeine Use: Reports: Coffee - Sexual History Sexual History: Reports: Sexually Active - Living Situation & Occupation Living situation: Reports: with Significant Other Occupation: Employed ED ROS GENERAL - Review of Systems Review Of Systems: See Below Free Text/Narrative/Comment: In addition to that documented in the HPI above, the additional ROS was obtained: Constitutional: Denies fevers or chills Eyes: Denies vision changes ENMT: Denies sore throat CV: Denies chest pain Resp: Denies SOB GI: Denies vomiting or diarrhea : Denies painful urination MSK: Denies recent trauma Skin: Denies new rashes Neuro: Denies new numbness or tingling or weakness Endocrine: Denies unexpected weight loss Heme: Denies bleeding disorders ED EXAM, ANIMAL BITE - Physical Exam Exam: See Below Text/Narrative:: I have reviewed the triage vital signs Const: Well nourished, well developed, appears stated age Eyes: Pupils Equal and reactive to light bilaterally, no conjunctival injection HENT: No signs of trauma or swelling, Neck supple without meningismus CV: Regular Rate Rhythm, Warm, well-perfused extremities RESP: Unlabored respiratory effort GI: soft, non-tender, non-distended, no masses MSK: No gross deformities appreciated Skin: Swelling and superficial bite dye noted on the right forearm. No lacerations noted. No foreign bodies noted. No active bleeding. Neuro: Alert, employer relations representative II-XII grossly intact. Sensation and motor function of extremities grossly intact. Psych: Appropriate mood and affect. Course - Vital Signs Last Recorded V/S: Last Vital Signs Temp 36.3 C 01/21/21 19:47 Pulse 85 01/21/21 19:47 Resp 18 01/21/21 19:47 BP 125/81 01/21/21 19:47 Pulse Ox 97 01/21/21 19:47 - Orders/Labs/Meds Orders: Active Orders 24 hr Category Date Time Status Forearm 2V Rt [CR] Stat Exams 01/21/21 19:58 Taken Meds: Medications Discontinued Medications Generic Name Dose Route Start Last Admin Trade Name Elba PRN Reason Stop Dose Admin Levofloxacin 750 mg 01/21/21 20:23 Levofloxacin 750 Mg Tab PO 01/21/21 20:24 ONETIME ONE Metronidazole 500 mg 01/21/21 20:20 Metronidazole 500 Mg Tab PO 01/21/21 20:21 ONETIME ONE Departure - Departure Time of Disposition: 20:37 Disposition: Home, Self-Care 01 Clinical Impression: Dog bite of right arm - Discharge Information Prescriptions: metroNIDAZOLE [Flagyl] 500 mg PO Q8H #20 tab Levofloxacin 750 mg PO DAILY 6 Days #6 tablet Referrals: PCP,None [Primary Care Provider] - Forms: ED Department Discharge Sepsis Event Note (ED) - Evaluation Sepsis Screening Result: No Definite Risk - Focused Exam Vital Signs: Vital Signs Temp Pulse Resp BP Pulse Ox 01/21/21 19:47 36.3 C 85 18 125/81 97 - My Orders Last 24 Hours: My Active Orders 01/21/21 19:58 Forearm 2V Rt [CR] Stat - Assessment/Plan Last 24 Hours: My Active Orders 01/21/21 19:58 Forearm 2V Rt [CR] Stat Assessment:: Patient is 30-year-old female presenting to the emergency room with a chief complaint of dog bite to the right arm. No evidence of significant fracture or foreign body. Wound irrigated thoroughly in the emergency room. No indication for wound closure. Patient states she is allergic to an antibiotic that is used to treat staph and given twice a day. She has no idea what medication this is. Therefore, patient was started on Levaquin and Flagyl to give her appropriate prophylactic coverage. In addition, patient feels comfortable without doing rabies prophylaxis at this time. She believes the dog's spanish teacher's were reliable and I did discuss risks and benefits, as well as my recommendations. All questions were addressed and answered. Patient agrees with plan of care.
[2021-01-21] MEDS ORDERED: metroNIDAZOLE 500 MG Tab PO ONE (20:20)
[2021-01-21] MEDS ORDERED: Levofloxacin 750 MG Tab PO ONE (20:23)
--- NOTE | 2021-01-22 07:10 | CR ---
Right forearm: 2 views of the right forearm were obtained. Comparison: No prior forearm study is available. Soft tissue air is seen within the ulnar and posterior aspect of the proximal forearm compatible with dog injury. No radiopaque foreign object is appreciated. No acute fracture or other bony abnormality is appreciated. Impression: 1. Soft tissue air compatible with dog injury, as described above. 2. No radiopaque foreign object or acute bony abnormality is appreciated. Diagnostic code #3
== END 2021-01-21 20:58 | disposition home or self-care (01) ==
LOC: JD.ED 19:36
DX: S50.871A Other superficial bite of right forearm, initial encounter (principal); Z79.899 Other long term (current) drug therapy; Z91.09 Other allergy status, other than to drugs and biological substances; W54.0XXA Bitten by dog, initial encounter
CPT/HCPCS: 73090; 99283; A9270